=== PATIENT | female | born 1970 | race Hispanic/Latino ===

== ENCOUNTER 2018-07-12 19:26 | Inpatient (IN) | payer MEDICARE, OTHER ==
[2018-07-12] MEDS ORDERED: NACL 0.9% 1000 ML 1,000 ML ONE (19:56)
[2018-07-12] MEDS ORDERED: KEPPRA 1,000 MG/NS 0.75% 100ML 1,000 MG/100 ML BAG IV ONE (20:56)
[2018-07-12 21:06] LABS: BUN/Creatinine Ratio 14; Blood Urea Nitrogen 10 mg/dL (7-17); Hemolysis Index 8
[2018-07-12 21:09] LABS: Basophils # (Auto) 0.1 K/mm3 (0.0-0.1); Basophils % (Auto) 0.5 % (0.0-1.8); Eosinophils % (Auto) 0.2 % (0.0-4.3); Hemoglobin 14.5 gm/dl (10.1-14.3); Lymphocytes # (Auto) 1.7 K/mm3 (1.2-5.4); Lymphocytes % (Auto) 13.2 % (13.4-35.0); Mean Corpuscular HGB Conc 34 % (30-34); Mean Corpuscular Hemoglobin 34 pg (28-32); Mean Corpuscular Volume 101 fl (79-97); Monocytes # (Auto) 0.7 K/mm3 (0.0-0.8); Monocytes % (Auto) 5.5 % (0.0-7.3); Platelet Count 212 K/mm3 (140-440); Red Blood Count 4.26 M/mm3 (3.65-5.03); Red Cell Distribution Width 15.3 % (13.2-15.2)
--- NOTE | 2018-07-12 21:47 | Cat Scan Report ---
FINAL REPORT PROCEDURE: CT HEAD/BRAIN WO CON TECHNIQUE: Computerized tomography of the head was performed without contrast material. HISTORY: new onset seizure COMPARISON: No prior studies are available for comparison. FINDINGS: This study is limited due to motion artifacts. A CSF density lesion is noted involving the posterior interventricular septum causing mass effect on the posterior 3rd ventricle and the upper portion of mid brain. Pineal gland appears to be displaced slightly to the left. Mild degree bilateral periventricular nonspecific white matter hypodensity is noted. There is no significant abnormality involving the posterior fossa structures. Visualized bilateral paranasal sinuses and mastoid air cells are clear. Bones are intact. IMPRESSION: A posterior interventricular CSF density cystic lesion most likely represents an arachnoid cyst. MRI pre and post contrast is recommended for further evaluation.
[2018-07-12 22:23] LABS: Bilirubin,Urine NEG (Negative); Blood,Urine SM (Negative); Color,Urine Yellow (Yellow); Mucus,Urine FEW /HPF; Urobilinogen,Urine < 2.0 mg/dL (<2.0)
[2018-07-12 22:31] LABS: Amphetamine Screen,Urine PRESUMPTIVE NEGATIVE; Benzodiazepines Screen,Urine PRESUMPTIVE NEGATIVE; Cannabinoid Screen,Urine PRESUMPTIVE NEGATIVE; Cocaine Screen,Urine PRESUMPTIVE NEGATIVE; Methadone Screen,Urine PRESUMPTIVE NEGATIVE; Opiate Screen,Urine PRESUMPTIVE NEGATIVE
--- NOTE | 2018-07-12 22:39 | Emergency Department Report ---
ED Seizure HPI - General Chief Complaint: Seizure Stated Complaint: SEIZURE Time Seen by Provider: 07/12/18 20:28 Source: EMS Mode of arrival: Stretcher Limitations: No Limitations - History of Present Illness Initial Comments: PT is currently at [facility] for psychosis on a voluntary basis. Today she had two generalized seizures. Never has had a seizure before. Patient did not return to baseline between the 2 seizures. She was postictal afterwards. When EMS arrived, her seizures have stopped. They gave her 2 mg IV Ativan and brought her to the ER for evaluation. Patient has been a [facility] for the past 5 days. She has no memory of today's events. - Related Data Allergies Allergy/AdvReac Type Severity Reaction Status Date / Time No Known Allergies Allergy Verified 07/13/18 05:03 ED Review of Systems ROS: Stated complaint: SEIZURE Other details as noted in HPI Comment: All other systems reviewed and negative Musculoskeletal: arthralgia, myalgia ED Past Medical Hx - Past Medical History Previous Medical History?: Yes Hx Seizures: Yes Additional medical history: etoh abuse - Surgical History Additional Surgical History: unknown - Social History Smoking Status: Smoker, Current Status Unknown ED Physical Exam - General Limitations: No Limitations General appearance: alert, in no apparent distress - Head Head exam: Present: atraumatic, normocephalic - Eye Eye exam: Present: normal appearance - ENT ENT exam: Present: mucous membranes moist - Neck Neck exam: Present: normal inspection - Respiratory Respiratory exam: Present: normal lung sounds bilaterally. Absent: respiratory distress - Cardiovascular Cardiovascular Exam: Present: regular rate, normal rhythm. Absent: systolic murmur, diastolic murmur, rubs, gallop - GI/Abdominal GI/Abdominal exam: Present: soft, normal bowel sounds. Absent: distended, tenderness, guarding, rebound - Extremities Exam Extremities exam: Present: normal inspection - Back Exam Back exam: Present: normal inspection - Neurological Exam Neurological exam: Present: alert, oriented X3 - Psychiatric Psychiatric exam: Present: normal affect, normal mood - Skin Skin exam: Present: warm, dry, intact, normal color. Absent: rash ED Course Vital Signs 07/12/18 07/12/18 07/12/18 19:32 19:45 20:00 Temperature Pulse Rate 82 86 84 Respiratory 21 19 20 Rate Blood Pressure 115/69 104/63 O2 Sat by Pulse 94 93 Oximetry 07/12/18 07/12/18 20:15 20:19 Temperature 98.6 F Pulse Rate 81 99 H Respiratory 18 17 Rate Blood Pressure 104/63 113/71 O2 Sat by Pulse 92 99 Oximetry - Reevaluation(s) Reevaluation #1: MRI head shows evidence of a benign arachnoid cyst. He has not had any seizure activity while in the ER. She will be admitted for status epilepticus. 07/13/18 05:04 ED Medical Decision Making - Lab Data Result diagrams: 07/12/18 20:59 07/12/18 20:32 - Medical Decision Making 48-year-old female with a past medical history psychosis that presents to the ER with seizure-like activity, now resolved. Vital signs are stable. Patient is well-appearing. Lab work and EKG are unremarkable. CT head shows signs of a cystic lesion, which the radiologist thinks is a arachnoid cyst. He is recommending an MRI for further workup. Given the patient has had new onset seizures, I have ordered the MRI. She has been given 1 g of Keppra in the ER for treatment of status epilepticus episode. She has no history of drinking. She was score is 0. Do not think that this is related to alcohol detox. She is on a voluntary 1013 at [facility]. I do not see a need to 1013 her right now. - Differential Diagnosis epilepsy, electrolyte abnormalities, malignancy, substance abuse withdrawal Critical care attestation.: If time is entered above; I have spent that time in minutes in the direct care of this critically ill patient, excluding procedure time. ED Disposition Clinical Impression: Status epilepticus, Arachnoid cyst Disposition: -09 OP ADMIT IP TO THIS HOSP Is pt being admited?: Yes Does the pt Need Aspirin: No Condition: Stable Referrals: PRIMARY CARE, [Primary Care Provider] - 3-5 Days
[2018-07-13] MEDS ORDERED: TORADOL IV ONE (00:20)
--- NOTE | 2018-07-13 03:45 | Magnetic Resonance Report ---
FINAL REPORT EXAM: MR BRAIN WO/W CON HISTORY: new onset sz, new cystic lesion on CT head TECHNIQUE: Routine multiplanar fast spin echo sequences were obtained of the brain initially without and subsequently following the intravenous injection of contrast. Correlation with the CT scan of the brain of 07/12/2018 was obtained. FINDINGS: There are multiple sequences compromised by motion artifact. In the quadrigeminal cistern behind the 3rd ventricle is a thin-walled arachnoid cyst measuring 15.9 mm x 19 mm x 23 mm with mild mass effect on the quadrigeminal plate. There is no evidence of hydrocephalus. There is increased signal in the periventricular white matter bilaterally compatible with chronic microvascular disease changes. There is no evidence of restricted diffusion. There are no signal changes that would suggest a recent stroke, hemorrhage, or abnormal enhancement. The orbital and sinus structures are unremarkable. Parasagittal images otherwise reveal a normal-appearing corpus callosum, pituitary gland and craniocervical junction. The nasopharynx is unremarkable. IMPRESSION: 15.9 mm x 19 mm x 23 mm benign arachnoid cyst in the quadrigeminal cistern with slight mass effect on the quadrigeminal plate. No evidence of hydrocephalus or abnormal enhancement. No evidence of acute stroke, hemorrhage or enhancing lesion. Increased signal of the periventricular and deep white matter compatible with chronic microvascular disease changes.
[2018-07-13] MEDS ORDERED: ATIVAN IV PRN ×4 (04:55→15:53)
[2018-07-13] MEDS ORDERED: TYLENOL PO PRN (04:56)
[2018-07-13] MEDS ORDERED: ZOFRAN IV PRN (04:57)
[2018-07-13] MEDS ORDERED: NACL 0.9% 1000 ML 1,000 ML IV SCH (05:00)
--- NOTE | 2018-07-13 08:10 | History and Physical Report ---
CHIEF COMPLAINT: Seizure attack. HISTORY OF PRESENTING ILLNESS: The patient is a 48-year-old female brought from [facility] after she started having generalized tonic-clonic seizure. The patient had [id number] seizure attack and was noted noted to get back to her baseline after 2 seizure attacks. There was no history of fever prior to the seizure attack and also no history of trauma prior to the seizure attack. There was no history of nausea or vomiting during the seizure attack or injury or biting of tongue. The patient was brought into the Emergency Room. PAST MEDICAL HISTORY: Pertinent for seizure disorder, alcohol abuse. PAST SURGICAL HISTORY: Noncontributory. SOCIAL HISTORY: The patient is currently at [facility]. The patient used to smoke cigarettes, drinks alcohol, does not use illicit drugs. MEDICATIONS: The patient's home medications are not known at this time. ALLERGIES: There are no known drug allergies. REVIEW OF SYSTEMS: CONSTITUTIONAL: There is no fever, no chills, no diaphoresis. HEENT: There is no headache or sore throat. CARDIOVASCULAR SYSTEM: There is no chest pain or orthopnea. RESPIRATORY SYSTEM: There is no shortness of breath or cough. GASTROINTESTINAL SYSTEM: There is no nausea, no vomiting. No abdominal pain, diarrhea or constipation. NEUROLOGICAL SYSTEM: Seizure attack noted. Change in mental status noted. MUSCULOSKELETAL SYSTEM: There is no joint pain or swelling. DERMATOLOGICAL SYSTEM: There is no skin rash or itching. GENITOURINARY SYSTEM: There is no dysuria, hematuria or flank pain. Rest of system review is normal. PHYSICAL EXAMINATION: GENERAL: At the time of exam, the patient was found to be lethargic, but arousable, and not in acute distress. VITAL SIGNS: At the initial time of presentation shows a temperature of 98.6 degrees Fahrenheit and pulse of 99, respiration 17, blood pressure 113/71, O2 sat of 99% on room air. HEENT: Show pupils to be equal, round, reactive to light and accommodating. Extraocular muscles are intact. NECK: Neck is supple with no JVD or carotid bruit. CARDIOVASCULAR SYSTEM: Show normal first and second heart sounds with no gallops or murmur. RESPIRATORY SYSTEM: Show good air entry on both sides of the lungs with no abnormal breath sounds. GASTROINTESTINAL SYSTEM: Show abdomen to be full, soft, nontender with no organomegaly or rigidity. NEUROLOGIC: Neuro exam show no focal deficit. The patient was found to be lethargic, but arousable. MUSCULOSKELETAL SYSTEM: Show no joint swelling or tenderness. DERMATOLOGICAL SYSTEM: Show no skin rash. GENITOURINARY SYSTEM: Showing no costovertebral angle tenderness. PERTINENT LABORATORY AND IMAGING STUDIES: The patient has CT of the brain without contrast done that shows arachnoid cyst, and the patient has MRI that confirmed the cyst. Lab results; the patient's lab results show CBC with elevated white count of 13,000, high hemoglobin of 14.7 and a high hematocrit of 43 with elevated MCV of 101. CBC differential show high segmented neutrophil of 80.6%. The patient's chemistry was unremarkable. Urinalysis shows trace urine ketones, otherwise unremarkable. Urine drug screen was unremarkable. DIAGNOSES: 1. Seizure attack: 2. Arachnoid cyst on CT and MRI of the brain. PLAN: 1. The patient will be admitted to telemetry. 2. The patient will have Neurology consult with Dr. Emma Cortez. 3. The patient will have Nephrology consult with Dr. Rios as requested by the Emergency Room physician for evaluation of possible renal insufficiency. 4. The patient will be on IV Keppra 750 mg q. 12 hours. 5. The patient will be on IV Ativan 2 mg every 2 hours as needed for seizure attack. 6. The patient will be on IV Zofran 4 mg every 8 hours as needed for nausea and vomiting and will be on oxygen by nasal cannula at 2 liter per minute. 7. The patient will be on IV normal saline at 100 mL an hour and will be on heparin 5000 units subcutaneous q. 12 hours for DVT prophylaxis and also on Tylenol 650 mg by mouth every 4 hours for fever and headache. JOB# [id number] OCN/NTS MTDD
[2018-07-13] MEDS ORDERED: KEPPRA 750 MG in NACL 0.9% 100 ML IV SCH (10:00)
[2018-07-13] MEDS ORDERED: HEPARIN SUB-Q SCH (10:00)
[2018-07-13] MEDS ORDERED: ATIVAN IV ONE (11:15)
--- NOTE | 2018-07-13 12:35 | Consultation ---
History of Present Illness Consult date: 07/13/18 Requesting physician: STEFAN SCHOFIELD Reason for Consult: status epilepticus History of present illness: Note from ER provides the following information. PT is currently at [facility] for psychosis on a voluntary basis. Today she had two generalized seizures. Never has had a seizure before. Patient did not return to baseline between the 2 seizures. She was postictal afterwards. When EMS arrived, her seizures have stopped. They gave her 2 mg IV Ativan and brought her to the ER for evaluation. After admission the patient had several more seizures, not waking up inbetween. She has been loaded with Keppra and given multiple doses of Ativan Currently she is postictal, awake but not verbal. MRI scan reveals an odd cystic lesion at the quadrigeminal plate, near the 3rd ventricle. We have no history of meds or past medical history. Medications and Allergies Allergies Allergy/AdvReac Type Severity Reaction Status Date / Time No Known Allergies Allergy Verified 07/13/18 05:03 Active Meds: Active Medications Acetaminophen (Tylenol) 650 mg PO Q4H PRN PRN Reason: Fever >101 Heparin Sodium (Porcine) (Heparin) 5,000 unit SUB-Q Q12HR ZAY Levetiracetam 750 mg/ Sodium (Chloride) 107.5 mls @ 400 mls/hr IV Q12HR ZAY Last Admin: 07/13/18 10:54 Dose: 400 mls/hr Sodium Chloride (Nacl 0.9% 1000 Ml) 1,000 mls @ 100 mls/hr IV DIRECT ZAY Lorazepam (Ativan) 2 mg IV Q2H PRN PRN Reason: Seizures Last Admin: 07/13/18 10:30 Dose: 2 mg Ondansetron HCl (Zofran) 4 mg IV Q8H PRN PRN Reason: Nausea And Vomiting Review of Systems ROS unobtainable: due to mental status Physical Examination - Vital Signs Vital Signs: Vital Signs Pulse Resp 82 21 07/12/18 19:32 07/12/18 19:32 - Physical Exam Narrative exam: Neurological exam - no verbalization. Moving in bed - not responding to commands. Picking at bed clothes, etc. No active seizures. federal aid coordinator - moves eyes in all plains. hearing intact Motor -moves all 4 extremities well. Reflexes - trace throughout Sensory - grossly intact. Results - Laboratory Findings CBC and BMP: 07/12/18 20:59 07/12/18 20:32 Abnormal Lab Findings: Abnormal Labs 07/12/18 20:59 WBC 13.0 H Hgb 14.5 H Hct 43.0 H MCV 101 H MCH 34 H RDW 15.3 H Lymph % (Auto) 13.2 L Seg Neutrophils % 80.6 H Seg Neutrophils # 10.5 H Assessment and Plan 48 year old female admitted from [facility] with first time seizures, status on presentation. MRI scan shows cystic lesion near quadrigeminal plate. EEG at present with multiple diffuse sharp waves, generalized, sl0ow background. Recommend - Load with Dilantin 500 mg. now and another 500 in 8 hours. Continue Keppra at 1000 mg BID. May increase to 1500 Q 12 over the weekend.
--- NOTE | 2018-07-13 15:44 | Progress Note ---
Assessment and Plan Assessment and plan: Patient is a 48 yo woman from [facility] who presented to [facility] after multiple seizure episodes. Patient is giving no history. She is confused. When I reviewed the records from [facility]; there is a signed 1013 on 2017. So, she was not on a involutary stay as stated in other physician's documentation. Now, the 1013 is very difficult to read and it most likely has . I have spoken with Virgilio from Psych departement and that 1013 is not valid and patient is confused to get an history of why she was on a 1013. This morning, CODE MET was called due to intractable seizures after multiple doses of iv ativan and iv keppra drip running. I spoke with the neurologist, Dr. Cortez and Housing Quality Standard Inspector Dr. Farmer who was at bedside. I sent to ICU for possible intubation due to Status Epilepticus -Status Epilepticus: treat with iv keppra, iv ativan and iv dilantin, EEG pending -Acute Encephalopathy related to the above -Arachnoid cyst on MRI: consulted Dr. Cortez -Suspected MDD: consulted psych -?ETOH Withdrawal per [facility]'s record: treat with IV ativan prn History Interval history: Patient was seen and examined. Follow-up on current diagnosis of sz and ams. Eventful morning with CODE MET. Imaging, nursing note, chart, labs and old chart reviewed. Hospitalist Physical - Physical exam Narrative exam: GEN: WDWN, NAD, Awake, Alert, Orientated x 1 HEENT: NCAT, EOMI, Pupils pinpt but reactive, OP Clear NECK: supple, no adenopathy, no thyromegaly, no JVD CVS/HEART: RRR, normal S1S2, pulses present bilaterally CHEST/LUNGS: CTA B, Symmetrical chest expansion, good air entry bilaterally GI/Abdomen: soft, NTND, good bowel sounds, no guarding or rebound /Bladder: no suprapubic tenderness, no CVA or paraspinal tenderness EXT/Skin: no c/c/e, no obvious rash MSK: FROM x 4 Neuro: CN 2-12 grossly intact, doesn't follow commands Psych: confused - Constitutional Vitals: Temp Pulse Resp BP Pulse Ox 98.1 F 76 16 125/69 99 07/13/18 07:46 07/13/18 10:00 07/13/18 14:56 07/13/18 07:46 07/13/18 14:56 Results - Labs CBC & Chem 7: 07/12/18 20:59 07/12/18 20:32 Labs: Laboratory Last Values WBC 13.0 K/mm3 (4.5-11.0) H 07/12/18 20:59 RBC 4.26 M/mm3 (3.65-5.03) 07/12/18 20:59 Hgb 14.5 gm/dl (10.1-14.3) H 07/12/18 20:59 Hct 43.0 % (30.3-42.9) H 07/12/18 20:59 MCV 101 fl (79-97) H 07/12/18 20:59 MCH 34 pg (28-32) H 07/12/18 20:59 MCHC 34 % (30-34) 07/12/18 20:59 RDW 15.3 % (13.2-15.2) H 07/12/18 20:59 Plt Count 212 K/mm3 (140-440) 07/12/18 20:59 Lymph % (Auto) 13.2 % (13.4-35.0) L 07/12/18 20:59 [place] % (Auto) 5.5 % (0.0-7.3) 07/12/18 20:59 Eos % (Auto) 0.2 % (0.0-4.3) 07/12/18 20:59 Baso % (Auto) 0.5 % (0.0-1.8) 07/12/18 20:59 Lymph # 1.7 K/mm3 (1.2-5.4) 07/12/18 20:59 [place] # 0.7 K/mm3 (0.0-0.8) 07/12/18 20:59 Eos # 0.0 K/mm3 (0.0-0.4) 07/12/18 20:59 Baso # 0.1 K/mm3 (0.0-0.1) 07/12/18 20:59 Seg Neutrophils % 80.6 % (40.0-70.0) H 07/12/18 20:59 Seg Neutrophils # 10.5 K/mm3 (1.8-7.7) H 07/12/18 20:59 Sodium 138 mmol/L (137-145) 07/12/18 20:32 Potassium 4.2 mmol/L (3.6-5.0) 07/12/18 20:32 Chloride 98.2 mmol/L (98-107) 07/12/18 20:32 Carbon Dioxide 23 mmol/L (22-30) 07/12/18 20:32 Anion Gap 21 mmol/L 07/12/18 20:32 BUN 10 mg/dL (7-17) 07/12/18 20:32 Creatinine 0.7 mg/dL (0.7-1.2) 07/12/18 20:32 Estimated GFR > 60 ml/min 07/12/18 20:32 BUN/Creatinine Ratio 14 % 07/12/18 20:32 Glucose 79 mg/dL (65-100) 07/12/18 20:32 Calcium 10.0 mg/dL (8.4-10.2) 07/12/18 20:32 Urine Color Yellow (Yellow) 07/12/18 22:14 Urine Turbidity Cloudy (Clear) 07/12/18 22:14 Urine pH 6.0 (5.0-7.0) 07/12/18 22:14 Ur Specific [place] 1.014 (1.003-1.030) 07/12/18 22:14 Urine Protein 30 mg/dl mg/dL (Negative) 07/12/18 22:14 Urine Glucose (UA) Neg mg/dL (Negative) 07/12/18 22:14 Urine Ketones Tr mg/dL (Negative) 07/12/18 22:14 Urine Blood Sm (Negative) 07/12/18 22:14 Urine Nitrite Neg (Negative) 07/12/18 22:14 Urine Bilirubin Neg (Negative) 07/12/18 22:14 Urine Urobilinogen < 2.0 mg/dL (<2.0) 07/12/18 22:14 Ur Leukocyte Esterase Neg (Negative) 07/12/18 22:14 Urine WBC (Auto) 2.0 /HPF (0.0-6.0) 07/12/18 22:14 Urine RBC (Auto) 3.0 /HPF (0.0-6.0) 07/12/18 22:14 U Epithel Cells (Auto) 1.0 /HPF (0-13.0) 08/16/18 22:14 Urine Mucus Few /HPF 07/12/18 22:14 Urine Opiates Screen Presumptive negative 07/12/18 22:14 Urine Methadone Screen Presumptive negative 07/12/18 22:14 Ur Barbiturates Screen Presumptive negative 07/12/18 22:14 Ur Phencyclidine Scrn Presumptive negative 07/12/18 22:14 Ur Amphetamines Screen Presumptive negative 07/12/18 22:14 U Benzodiazepines Scrn Presumptive negative 07/12/18 22:14 Urine Cocaine Screen Presumptive negative 07/12/18 22:14 U Marijuana (THC) Screen Presumptive negative 07/12/18 22:14 Drugs of Abuse Note Disclamer 07/12/18 22:14 Plasma/Serum Alcohol < 0.01 % (0-0.07) 07/12/18 20:59
[2018-07-13] MEDS ORDERED: HALDOL IV PRN (15:53)
[2018-07-13] MEDS: VITAMIN B-1 PO SCH (17:02)
[2018-07-13] MEDS: FOLVITE PO SCH (17:02)
[2018-07-13] MEDS ORDERED: APRESOLINE IV PRN (17:32)
[2018-07-13 18:36] LABS: Free T4 (Free Thyroxine) 1.49 ng/dL (0.76-1.46)
[2018-07-13] MEDS: KEPPRA 1,000 MG in NACL 0.9% 100 ML IV SCH (21:45)
[2018-07-14 05:05] LABS: Hematocrit 38.8 % (30.3-42.9); Hemoglobin 13.1 gm/dl (10.1-14.3); Mean Corpuscular HGB Conc 34 % (30-34); Mean Corpuscular Hemoglobin 35 pg (28-32); Mean Corpuscular Volume 102 fl (79-97); Platelet Count 175 K/mm3 (140-440); Red Blood Count 3.81 M/mm3 (3.65-5.03); Red Cell Distribution Width 15.3 % (13.2-15.2)
[2018-07-14 06:05] LABS: BUN/Creatinine Ratio 27; Blood Urea Nitrogen 16 mg/dL (7-17); Calcium 9.1 mg/dL (8.4-10.2); Hemolysis Index 6
[2018-07-14] MEDS: FOLVITE PO SCH (10:10)
[2018-07-14] MEDS: KEPPRA 1,000 MG in NACL 0.9% 100 ML IV SCH ×2 (10:12→22:35)
[2018-07-14] MEDS: VITAMIN B-1 PO SCH (10:12)
[2018-07-14] MEDS ORDERED: K-DUR PO ONE (10:26)
--- NOTE | 2018-07-14 10:28 | Progress Note ---
Assessment and Plan Assessment and plan: Patient is a 48 yo woman from [facility] who presented to [facility] after multiple seizure episodes. There is a signed 1013 on 07/06/2018 from [place] [facility] in the chart but I have spoken with Virgilio from Psych department and that 1013 is not valid. She developed Status Epilepticus 07/13/18 and was sent to ICU. She did not require intubation and has done well. She was transferred out of ICU on 07/14/18. -Status Epilepticus: treat with iv keppra, iv ativan, dilantin, EEG report reviewed -Acute Encephalopathy related to the above -Arachnoid cyst on MRI: incidental -Suspected MDD: consulted psych -?ETOH Withdrawal per [facility]'s record: treat with IV ativan prn History Interval history: Patient was seen and examined. Follow-up on current diagnosis of sz and ams. Sedated with iv ativan but easily arousable. Imaging, nursing note, chart, labs and old chart reviewed. Hospitalist Physical - Physical exam Narrative exam: GEN: WDWN, NAD, sleepy but easily arousable HEENT: NCAT, EOMI, Pupils pinpt but reactive, OP Clear NECK: supple, no adenopathy, no thyromegaly, no JVD CVS/HEART: RRR, normal S1S2, pulses present bilaterally CHEST/LUNGS: CTA B, Symmetrical chest expansion, good air entry bilaterally GI/Abdomen: soft, NTND, good bowel sounds, no guarding or rebound /Bladder: no suprapubic tenderness, no CVA or paraspinal tenderness EXT/Skin: no c/c/e, no obvious rash MSK: FROM x 4 Neuro: CN 2-12 grossly intact, no new focal deficits Psych: calm - Constitutional Vitals: Temp Pulse Resp BP Pulse Ox 97.9 F 78 22 150/85 99 07/14/18 08:00 07/14/18 09:30 07/14/18 09:30 07/14/18 09:30 07/14/18 09:30 Results - Labs CBC & Chem 7: 07/14/18 04:27 07/14/18 04:27 Labs: Laboratory Last Values WBC 12.2 K/mm3 (4.5-11.0) H 07/14/18 04:27 RBC 3.81 M/mm3 (3.65-5.03) 07/14/18 04:27 Hgb 13.1 gm/dl (10.1-14.3) 07/14/18 04:27 Hct 38.8 % (30.3-42.9) 07/14/18 04:27 MCV 102 fl (79-97) H 07/14/18 04:27 MCH 35 pg (28-32) H 07/14/18 04:27 MCHC 34 % (30-34) 07/14/18 04:27 RDW 15.3 % (13.2-15.2) H 07/14/18 04:27 Plt Count 175 K/mm3 (140-440) 07/14/18 04:27 Lymph % (Auto) 13.2 % (13.4-35.0) L 07/12/18 20:59 [place] % (Auto) 5.5 % (0.0-7.3) 07/12/18 20:59 Eos % (Auto) 0.2 % (0.0-4.3) 07/12/18 20:59 Baso % (Auto) 0.5 % (0.0-1.8) 07/12/18 20:59 Lymph # 1.7 K/mm3 (1.2-5.4) 07/12/18 20:59 [place] # 0.7 K/mm3 (0.0-0.8) 07/12/18 20:59 Eos # 0.0 K/mm3 (0.0-0.4) 07/12/18 20:59 Baso # 0.1 K/mm3 (0.0-0.1) 07/12/18 20:59 Seg Neutrophils % 80.6 % (40.0-70.0) H 07/12/18 20:59 Seg Neutrophils # 10.5 K/mm3 (1.8-7.7) H 07/12/18 20:59 Sodium 141 mmol/L (137-145) 07/14/18 04:27 Potassium 3.2 mmol/L (3.6-5.0) L D 07/14/18 04:27 Chloride 101.4 mmol/L (98-107) 07/14/18 04:27 Carbon Dioxide 25 mmol/L (22-30) 07/14/18 04:27 Anion Gap 18 mmol/L 07/14/18 04:27 BUN 16 mg/dL (7-17) 07/14/18 04:27 Creatinine 0.6 mg/dL (0.7-1.2) L 07/14/18 04:27 Estimated GFR > 60 ml/min 07/14/18 04:27 BUN/Creatinine Ratio 27 % 07/14/18 04:27 Glucose 96 mg/dL (65-100) 07/14/18 04:27 Calcium 9.1 mg/dL (8.4-10.2) 07/14/18 04:27 TSH 0.718 mlU/mL (0.270-4.200) 07/13/18 16:42 Free T4 1.49 ng/dL (0.76-1.46) H 07/13/18 16:42 Urine Color Yellow (Yellow) 07/12/18 22:14 Urine Turbidity Cloudy (Clear) 07/12/18 22:14 Urine pH 6.0 (5.0-7.0) 07/12/18 22:14 Ur Specific [place] 1.014 (1.003-1.030) 07/12/18 22:14 Urine Protein 30 mg/dl mg/dL (Negative) 07/12/18 22:14 Urine Glucose (UA) Neg mg/dL (Negative) 07/12/18 22:14 Urine Ketones Tr mg/dL (Negative) 07/12/18 22:14 Urine Blood Sm (Negative) 07/12/18 22:14 Urine Nitrite Neg (Negative) 07/12/18 22:14 Urine Bilirubin Neg (Negative) 07/12/18 22:14 Urine Urobilinogen < 2.0 mg/dL (<2.0) 07/12/18 22:14 Ur Leukocyte Esterase Neg (Negative) 07/12/18 22:14 Urine WBC (Auto) 2.0 /HPF (0.0-6.0) 07/12/18 22:14 Urine RBC (Auto) 3.0 /HPF (0.0-6.0) 07/12/18 22:14 U Epithel Cells (Auto) 1.0 /HPF (0-13.0) 07/12/18 22:14 Urine Mucus Few /HPF 07/12/18 22:14 Urine Opiates Screen Presumptive negative 07/12/18 22:14 Urine Methadone Screen Presumptive negative 07/12/18 22:14 Ur Barbiturates Screen Presumptive negative 07/12/18 22:14 Ur Phencyclidine Scrn Presumptive negative 07/12/18 22:14 Ur Amphetamines Screen Presumptive negative 07/12/18 22:14 U Benzodiazepines Scrn Presumptive negative 07/12/18 22:14 Urine Cocaine Screen Presumptive negative 07/12/18 22:14 U Marijuana (THC) Screen Presumptive negative 07/12/18 22:14 Drugs of Abuse Note Disclamer 07/12/18 22:14 Plasma/Serum Alcohol < 0.01 % (0-0.07) 07/12/18 20:59
[2018-07-14] MEDS: DILANTIN PO SCH ×2 (18:16→22:18)
[2018-07-15] MEDS: DILANTIN PO SCH ×3 (06:03→23:10)
[2018-07-15 06:06] LABS: Hematocrit 40.3 % (30.3-42.9); Hemoglobin 13.6 gm/dl (10.1-14.3); Mean Corpuscular HGB Conc 34 % (30-34); Mean Corpuscular Hemoglobin 34 pg (28-32); Mean Corpuscular Volume 101 fl (79-97); Platelet Count 197 K/mm3 (140-440); Red Cell Distribution Width 15.4 % (13.2-15.2)
[2018-07-15 06:08] LABS: BUN/Creatinine Ratio 46; Blood Urea Nitrogen 23 mg/dL (7-17); Calcium 9.4 mg/dL (8.4-10.2); Hemolysis Index 14
[2018-07-15] MEDS: VITAMIN B-1 PO SCH (09:13)
[2018-07-15] MEDS: FOLVITE PO SCH (09:13)
[2018-07-15] MEDS: KEPPRA 1,000 MG in NACL 0.9% 100 ML IV SCH (10:15)
--- NOTE | 2018-07-15 11:27 | Progress Note ---
Assessment and Plan Assessment and plan: Patient is a 48 yo woman from [facility] facility who presented to [facility] after multiple seizure episodes. There is a signed 1013 on 07/06/2018 from [place] in the chart but I have spoken with Virgilio from Psych department and that 1013 is not valid. She developed Status Epilepticus 07/13/18 and was sent to ICU. She did not require intubation and has done well. She was transferred out of ICU on 07/14/18. -Status Epilepticus: treat with iv keppra, iv ativan, dilantin, EEG report reviewed -Acute Encephalopathy related to the above -Arachnoid cyst on MRI: incidental -Suspected MDD: consulted psych -?ETOH Withdrawal per [place]'s record: treat with IV ativan prn Jaqueline Mead at bedside. Not known to be alcoholic but was on Suboxone x 5 years. Initially, she went to [facility] ED because of overdose, mixed fentanyl (street) with suboxone and she became confused. She was admitted there for about a week. Then she discharge to [facility] last Monday for seizures. She has CHF, HTN not DM. She has 3 children, with 2 sons and 1 daughter. I spoke with sonKody over the phone also Patient actively had another brief seizure during my visit, will transfer to [facility] for closer monitoring, give IV Ativan. CCT 31 minutes History Interval history: Patient was seen and examined. Follow-up on current diagnosis of sz and ams. Sleepy. Imaging, nursing note, chart, labs and old chart reviewed. Jaqueline Mead at bedside. Not known to be alcoholic but was on Suboxone x 5 years. Initially she went to [facility] ED because of overdose, mixed fentanyl (street) with suboxone and she became confused. She was admitted there for about a week. Then she discharge to [facility] last Monday for seizures. She has CHF, htn, not DM. She has 3 children, with 2 sons and 1 daughter Hospitalist Physical - Physical exam Narrative exam: GEN: WDWN, NAD, sleepy but easily arousable HEENT: NCAT, EOMI, Pupils pinpt but reactive, OP Clear NECK: supple, no adenopathy, no thyromegaly, no JVD CVS/HEART: RRR, normal S1S2, pulses present bilaterally CHEST/LUNGS: CTA B, Symmetrical chest expansion, good air entry bilaterally GI/Abdomen: soft, NTND, good bowel sounds, no guarding or rebound /Bladder: no suprapubic tenderness, no CVA or paraspinal tenderness EXT/Skin: no c/c/e, no obvious rash MSK: FROM x 4 Neuro: CN 2-12 grossly intact, no new focal deficits Psych: calm - Constitutional Vitals: Temp Pulse Resp BP Pulse Ox 98.4 F 83 18 147/86 99 07/15/18 06:08 07/15/18 06:08 07/15/18 06:08 07/15/18 06:08 07/15/18 08:28 Results - Labs CBC & Chem 7: 07/15/18 05:07 07/15/18 05:07 Labs: Laboratory Last Values WBC 13.6 K/mm3 (4.5-11.0) H 07/15/18 05:07 RBC 4.00 M/mm3 (3.65-5.03) 07/15/18 05:07 Hgb 13.6 gm/dl (10.1-14.3) 07/15/18 05:07 Hct 40.3 % (30.3-42.9) 07/15/18 05:07 MCV 101 fl (79-97) H 07/15/18 05:07 MCH 34 pg (28-32) H 07/15/18 05:07 MCHC 34 % (30-34) 07/15/18 05:07 RDW 15.4 % (13.2-15.2) H 07/15/18 05:07 Plt Count 197 K/mm3 (140-440) 07/15/18 05:07 Lymph % (Auto) 13.2 % (13.4-35.0) L 07/12/18 20:59 [place] % (Auto) 5.5 % (0.0-7.3) 07/12/18 20:59 Eos % (Auto) 0.2 % (0.0-4.3) 07/12/18 20:59 Baso % (Auto) 0.5 % (0.0-1.8) 07/12/18 20:59 Lymph # 1.7 K/mm3 (1.2-5.4) 07/12/18 20:59 [place] # 0.7 K/mm3 (0.0-0.8) 07/12/18 20:59 Eos # 0.0 K/mm3 (0.0-0.4) 07/12/18 20:59 Baso # 0.1 K/mm3 (0.0-0.1) 07/12/18 20:59 Seg Neutrophils % 80.6 % (40.0-70.0) H 07/12/18 20:59 Seg Neutrophils # 10.5 K/mm3 (1.8-7.7) H 07/12/18 20:59 Sodium 141 mmol/L (137-145) 07/15/18 05:07 Potassium 3.2 mmol/L (3.6-5.0) L 07/15/18 05:07 Chloride 98.4 mmol/L (98-107) 07/15/18 05:07 Carbon Dioxide 21 mmol/L (22-30) L 07/15/18 05:07 Anion Gap 25 mmol/L 07/15/18 05:07 BUN 23 mg/dL (7-17) H 07/15/18 05:07 Creatinine 0.5 mg/dL (0.7-1.2) L 07/15/18 05:07 Estimated GFR > 60 ml/min 07/15/18 05:07 BUN/Creatinine Ratio 46 % 07/15/18 05:07 Glucose 108 mg/dL (65-100) H 07/15/18 05:07 Calcium 9.4 mg/dL (8.4-10.2) 07/15/18 05:07 Magnesium 2.10 mg/dL (1.7-2.3) 07/15/18 05:07 TSH 0.718 mlU/mL (0.270-4.200) 07/13/18 16:42 Free T4 1.49 ng/dL (0.76-1.46) H 07/13/18 16:42 Urine Color Yellow (Yellow) 07/12/18 22:14 Urine Turbidity Cloudy (Clear) 07/12/18 22:14 Urine pH 6.0 (5.0-7.0) 07/12/18 22:14 Ur Specific [place] 1.014 (1.003-1.030) 07/12/18 22:14 Urine Protein 30 mg/dl mg/dL (Negative) 07/12/18 22:14 Urine Glucose (UA) Neg mg/dL (Negative) 07/12/18 22:14 Urine Ketones Tr mg/dL (Negative) 07/12/18 22:14 Urine Blood Sm (Negative) 07/12/18 22:14 Urine Nitrite Neg (Negative) 07/12/18 22:14 Urine Bilirubin Neg (Negative) 07/12/18 22:14 Urine Urobilinogen < 2.0 mg/dL (<2.0) 07/12/18 22:14 Ur Leukocyte Esterase Neg (Negative) 07/12/18 22:14 Urine WBC (Auto) 2.0 /HPF (0.0-6.0) 07/12/18 22:14 Urine RBC (Auto) 3.0 /HPF (0.0-6.0) 07/12/18 22:14 U Epithel Cells (Auto) 1.0 /HPF (0-13.0) 07/12/18 22:14 Urine Mucus Few /HPF 07/12/18 22:14 Urine Opiates Screen Presumptive negative 07/12/18 22:14 Urine Methadone Screen Presumptive negative 07/12/18 22:14 Ur Barbiturates Screen Presumptive negative 07/12/18 22:14 Ur Phencyclidine Scrn Presumptive negative 07/12/18 22:14 Ur Amphetamines Screen Presumptive negative 07/12/18 22:14 U Benzodiazepines Scrn Presumptive negative 07/12/18 22:14 Urine Cocaine Screen Presumptive negative 07/12/18 22:14 U Marijuana (THC) Screen Presumptive negative 07/12/18 22:14 Drugs of Abuse Note Disclamer 07/12/18 22:14 Plasma/Serum Alcohol < 0.01 % (0-0.07) 07/12/18 20:59
[2018-07-15] MEDS ORDERED: K-DUR PO ONE (12:00)
[2018-07-15] MEDS: KEPPRA 1,500 MG in NACL 0.9% 100 ML IV SCH (23:09)
[2018-07-16 06:33] LABS: Hematocrit 41.9 % (30.3-42.9); Mean Corpuscular HGB Conc 33 % (30-34); Mean Corpuscular Hemoglobin 34 pg (28-32); Mean Corpuscular Volume 102 fl (79-97); Platelet Count 189 K/mm3 (140-440); Red Cell Distribution Width 14.9 % (13.2-15.2)
[2018-07-16] MEDS: DILANTIN PO SCH ×3 (06:49→23:04)
[2018-07-16 07:38] LABS: BUN/Creatinine Ratio 42; Blood Urea Nitrogen 21 mg/dL (7-17); Calcium 9.3 mg/dL (8.4-10.2); Hemolysis Index 5
--- NOTE | 2018-07-16 07:42 | Progress Note ---
Assessment and Plan Assessment and plan: Patient is a 48 yo woman from [facility] facility who presented to [facility] after multiple seizure episodes. There is a signed 1013 on 07/06/2018 from [place] in the chart but I have spoken with Virgilio from Psych department and that 1013 is not valid. She developed Status Epilepticus 07/13/18 and was sent to ICU. She did not require intubation and has done well. She was transferred out of ICU on 07/14/18. -Status Epilepticus: treat with iv keppra, iv ativan, dilantin, EEG report reviewed -Acute Encephalopathy related to the above -Arachnoid cyst on MRI: incidental -Hypokalemia: replace and recheck in am -Suspected MDD: consulted psych -?ETOH Withdrawal per [place]'s record: treat with IV ativan prn D/W Daughter Alyce. Pt NOT known to be alcoholic but was on Suboxone x 5 years. Initially, she went to [facility] ED because of overdose, mixed fentanyl (street) with suboxone and she became confused. She was admitted there for about a week. Then she discharge to [facility] facility last Monday for seizures. She has CHF, HTN not DM. She has 3 children, with 2 sons and 1 daughter. I spoke with sonKody over the phone also Patient continues to have breakthrough seizures, re-consulted Neurology this morning. Patient is sitting and talking, she is asking for food, over and over again, ?Echolalia Also, low grade temp, will get blood cultures and consulted ID CCT 31 minutes History Interval history: Patient was seen and examined. Follow-up on current diagnosis of sz and ams. Patient had another brief breakthru seizure. Hospitalist Physical - Physical exam Narrative exam: GEN: WDWN, NAD, sleepy but easily arousable HEENT: NCAT, EOMI, Pupils pinpt but reactive, OP Clear NECK: supple, no adenopathy, no thyromegaly, no JVD CVS/HEART: RRR, normal S1S2, pulses present bilaterally CHEST/LUNGS: CTA B, Symmetrical chest expansion, good air entry bilaterally GI/Abdomen: soft, NTND, good bowel sounds, no guarding or rebound /Bladder: no suprapubic tenderness, no CVA or paraspinal tenderness EXT/Skin: no c/c/e, no obvious rash MSK: FROM x 4 Neuro: CN 2-12 grossly intact, no new focal deficits Psych: calm - Constitutional Vitals: Temp Pulse Resp BP Pulse Ox 99.1 F 86 17 141/69 96 07/16/18 04:00 07/16/18 04:24 07/16/18 04:00 07/16/18 04:00 07/16/18 04:00 Results - Labs CBC & Chem 7: 07/16/18 05:56 07/16/18 05:56 Labs: Laboratory Last Values WBC 10.3 K/mm3 (4.5-11.0) 07/16/18 05:56 RBC 4.10 M/mm3 (3.65-5.03) 07/16/18 05:56 Hgb 14.0 gm/dl (10.1-14.3) 07/16/18 05:56 Hct 41.9 % (30.3-42.9) 07/16/18 05:56 MCV 102 fl (79-97) H 07/16/18 05:56 MCH 34 pg (28-32) H 07/16/18 05:56 MCHC 33 % (30-34) 07/16/18 05:56 RDW 14.9 % (13.2-15.2) 07/16/18 05:56 Plt Count 189 K/mm3 (140-440) 07/16/18 05:56 Lymph % (Auto) 13.2 % (13.4-35.0) L 07/12/18 20:59 [place] % (Auto) 5.5 % (0.0-7.3) 07/12/18 20:59 Eos % (Auto) 0.2 % (0.0-4.3) 07/12/18 20:59 Baso % (Auto) 0.5 % (0.0-1.8) 07/12/18 20:59 Lymph # 1.7 K/mm3 (1.2-5.4) 07/12/18 20:59 [place] # 0.7 K/mm3 (0.0-0.8) 07/12/18 20:59 Eos # 0.0 K/mm3 (0.0-0.4) 07/12/18 20:59 Baso # 0.1 K/mm3 (0.0-0.1) 07/12/18 20:59 Seg Neutrophils % 80.6 % (40.0-70.0) H 07/12/18 20:59 Seg Neutrophils # 10.5 K/mm3 (1.8-7.7) H 07/12/18 20:59 Sodium 144 mmol/L (137-145) 07/16/18 05:56 Potassium 3.4 mmol/L (3.6-5.0) L 07/16/18 05:56 Chloride 104.0 mmol/L (98-107) 07/16/18 05:56 Carbon Dioxide 20 mmol/L (22-30) L 07/16/18 05:56 Anion Gap 23 mmol/L 07/16/18 05:56 BUN 21 mg/dL (7-17) H 07/16/18 05:56 Creatinine 0.5 mg/dL (0.7-1.2) L 07/16/18 05:56 Estimated GFR > 60 ml/min 07/16/18 05:56 BUN/Creatinine Ratio 42 % 07/16/18 05:56 Glucose 108 mg/dL (65-100) H 07/16/18 05:56 Calcium 9.3 mg/dL (8.4-10.2) 07/16/18 05:56 Magnesium 2.00 mg/dL (1.7-2.3) 07/16/18 05:56 TSH 0.718 mlU/mL (0.270-4.200) 07/13/18 16:42 Free T4 1.49 ng/dL (0.76-1.46) H 07/13/18 16:42 Urine Color Yellow (Yellow) 07/12/18 22:14 Urine Turbidity Cloudy (Clear) 07/12/18 22:14 Urine pH 6.0 (5.0-7.0) 07/12/18 22:14 Ur Specific [place] 1.014 (1.003-1.030) 07/12/18 22:14 Urine Protein 30 mg/dl mg/dL (Negative) 07/12/18 22:14 Urine Glucose (UA) Neg mg/dL (Negative) 07/12/18 22:14 Urine Ketones Tr mg/dL (Negative) 07/12/18 22:14 Urine Blood Sm (Negative) 07/12/18 22:14 Urine Nitrite Neg (Negative) 07/12/18 22:14 Urine Bilirubin Neg (Negative) 07/12/18 22:14 Urine Urobilinogen < 2.0 mg/dL (<2.0) 07/12/18 22:14 Ur Leukocyte Esterase Neg (Negative) 07/12/18 22:14 Urine WBC (Auto) 2.0 /HPF (0.0-6.0) 07/12/18 22:14 Urine RBC (Auto) 3.0 /HPF (0.0-6.0) 07/12/18 22:14 U Epithel Cells (Auto) 1.0 /HPF (0-13.0) 07/12/18 22:14 Urine Mucus Few /HPF 07/12/18 22:14 Urine Opiates Screen Presumptive negative 07/12/18 22:14 Urine Methadone Screen Presumptive negative 07/12/18 22:14 Ur Barbiturates Screen Presumptive negative 07/12/18 22:14 Ur Phencyclidine Scrn Presumptive negative 07/12/18 22:14 Ur Amphetamines Screen Presumptive negative 07/12/18 22:14 U Benzodiazepines Scrn Presumptive negative 07/12/18 22:14 Urine Cocaine Screen Presumptive negative 07/12/18 22:14 U Marijuana (THC) Screen Presumptive negative 07/12/18 22:14 Drugs of Abuse Note Disclamer 07/12/18 22:14 Plasma/Serum Alcohol < 0.01 % (0-0.07) 07/12/18 20:59
[2018-07-16] MEDS ORDERED: KCL 10MEQ/100ML 10 MEQ/100 ML BAG IV SCH ×2 (08:00→16:00)
[2018-07-16] MEDS: VITAMIN B-1 PO SCH (11:03)
[2018-07-16] MEDS: FOLVITE PO SCH (11:04)
[2018-07-16] MEDS: KEPPRA 1,500 MG in NACL 0.9% 100 ML IV SCH ×2 (11:14→23:04)
--- NOTE | 2018-07-16 12:03 | Consultation ---
History of Present Illness - Reason for Consult Consult date: 07/16/18 Reason for consult: Mental Health Evaluation Requesting physician: STEFAN SCHOFIELD - Chief Complaint Chief complaint: "I want something to eat" - History of Present Psychiatric Illness 48 y.o. white female presenting to the ER for seizures. This patient was transferred from [place] on a invalid 1013. Today the patient is calm, but confused during the assessment. Per the staff, the patient is has had several seizures. The patient was asked several questions and she answer with, "I want more food." This patient is a poor historian at this time. Medications and Allergies Allergies Allergy/AdvReac Type Severity Reaction Status Date / Time No Known Allergies Allergy Verified 07/13/18 05:03 Active Meds: Active Medications Folic Acid (Folvite) 1 mg PO QDAY [facility] Last Admin: 07/16/18 11:04 Dose: 1 mg Hydralazine HCl (Apresoline) 10 mg IV Q6HR PRN PRN Reason: Hypertension Levetiracetam 1,500 mg/ Sodium (Chloride) 115 mls @ 400 mls/hr IV Q12HR [facility] Last Admin: 07/16/18 11:14 Dose: 400 mls/hr Lorazepam (Ativan) 2 mg IV Q4H PRN PRN Reason: Seizures Phenytoin (Dilantin) 100 mg PO Q8HR [facility] Last Admin: 07/16/18 06:49 Dose: 100 mg Thiamine HCl (Vitamin B-1) 100 mg PO QDAY [facility] Last Admin: 07/16/18 11:03 Dose: 100 mg Past psychiatric history - Past Medical History Past Medical History: seizures, other (ETOH Abuse per the record) Past Surgical History: Other (Unable to obtain) - past Psychiatric treatment and history psychiatric treatment history: Unable to obtain a psy hx and fam psy hx. - Social History Social history: other (Unable to obtain) Mental Status Exam - Vital signs Last Vital Signs Temp 99.1 F 07/16/18 04:00 Pulse 86 07/16/18 04:24 Resp 17 07/16/18 04:00 BP 141/69 07/16/18 04:00 Pulse Ox 95 07/16/18 08:31 - Exam Narrative exam: Unable to complete the MSE because of the patient's condition. Results Result Diagrams: 07/16/18 05:56 07/16/18 05:56 Abnormal lab results 07/16/18 07/16/18 Range/Units 05:56 05:56 MCV 102 H (79-97) fl MCH 34 H (28-32) pg Potassium 3.4 L (3.6-5.0) mmol/L Carbon Dioxide 20 L (22-30) mmol/L BUN 21 H (7-17) mg/dL Creatinine 0.5 L (0.7-1.2) mg/dL Glucose 108 H (65-100) mg/dL All other labs normal. Assessment and Plan Assessment and plan: Impression: Delirium. Today the patient is calm, but confused during the assessment. Medical: Status Epilepticus, Acute Encephalopathy, and Arachnoid cyst on MRI Recommendation/Plan: Gather collateral information and reassess the patient in 24 hours. Use Ativan IV only for seizure activity. Neuro is following patient. Recommend Delirium precautions below: 1. Frequently reorient patient and involve him/her in their care (simple explanations of procedures, tests, medications). 2. Lights on and shades open during daytime hours. 3. Write date and goals of care in a visible place. 4. Try to avoid unnecessary interruptions to sleep during nighttime hours. 5. Obtain glasses, hearing aids from home if patient uses these at baseline. 6. Avoid medications that may exacerbate delirium (especially narcotics, benzodiazepines, barbiturates, ambien, lunesta, and medications with excessive anticholinergic properties).
--- NOTE | 2018-07-16 14:51 | Consultation ---
History of Present Illness - Reason for Consult Consult date: 07/16/18 new onset seizures Requesting physician: STEFAN SCHOFIELD - History of Present Illness 48 y/o female with history of psychosis and alcohol abuse; admitted on 07/12/18 due to intractable generalized seizures after multiple doses of iv ativan and iv keppra drip running. Never has had a seizure before. Patient did not return to baseline between the 2 seizures. She resides currently at [facility] for psychosis on a voluntary basis. Patient is currently confused and unable to provide a full history. In the ED, temp temperature and 98.6, heart rate 82, respiration 21, O2 sat 94, blood pressure 115/69. Initial white count 13. Hemoglobin 14.5. Platelets 214. Creatinine 0.7. Urinalysis is negative. UDS negative. CT of the head showed CSF density cystic lesion ? Arachnoid cyst. MRI of the brain show 15.9 x 19 x 23 mm benign cyst in the quadrigeminal cistern. Noted fever at 100.8 on 07/15/2018. Microbiology: Blood cultures: 07/16 ngtd Current Antimicrobials: none Previous Antimicrobials: Past History Past Medical History: seizures, other (ETOH Abuse per the record) Past Surgical History: Other (Unable to obtain) Social history: other (Unable to obtain) Medications and Allergies Allergies Allergy/AdvReac Type Severity Reaction Status Date / Time No Known Allergies Allergy Verified 07/13/18 05:03 Active Meds: Active Medications Folic Acid (Folvite) 1 mg PO QDAY [facility] Last Admin: 07/16/18 11:04 Dose: 1 mg Hydralazine HCl (Apresoline) 10 mg IV Q6HR PRN PRN Reason: Hypertension Levetiracetam 1,500 mg/ Sodium (Chloride) 115 mls @ 400 mls/hr IV Q12HR [facility] Last Admin: 07/16/18 11:14 Dose: 400 mls/hr Lorazepam (Ativan) 2 mg IV Q4H PRN PRN Reason: Seizures Phenytoin (Dilantin) 100 mg PO Q8HR [facility] Last Admin: 07/16/18 14:33 Dose: 100 mg Thiamine HCl (Vitamin B-1) 100 mg PO QDAY [facility] Last Admin: 07/16/18 11:03 Dose: 100 mg Review of Systems ROS unobtainable: due to mental status Physical Examination - Physical Exam Narrative exam: General appearance: Alert in NAD, non conversant Eyes: anicteric sclerae, moist conjunctivae; no lid-lag; PERRLA HENT: Atraumatic; oropharynx clear Neck: Trachea midline; supple, no thyromegaly or lymphadenopathy Lungs: CTA CV: RRR, no murmurs Abdomen: Soft, non-tender; no masses or hepatosplenomegaly Extremities: No peripheral edema or extremity lymphadenopathy Skin: Normal temperature, turgor and texture; no rash, ulcers or subcutaneous nodules Psych: Appropriate affect, alert non verbal. Neuro: alert and oriented x 1 Lines: No CVL / PICC - Constitutional Vitals: Vital Signs Temp Pulse Resp BP Pulse Ox 99.1 F 86 17 141/69 95 07/16/18 04:00 07/16/18 04:24 07/16/18 04:00 07/16/18 04:00 07/16/18 08:31 Temperature -Last 24 Hours Temperature 99.1 F Temperature 99.2 F Temperature 98.5 F Temperature 100.3 F Temperature 100.3 F Results - Labs CBC & Chem 7: 07/16/18 05:56 07/16/18 05:56 Labs: Abnormal lab results 07/16/18 07/16/18 Range/Units 05:56 05:56 MCV 102 H (79-97) fl MCH 34 H (28-32) pg Potassium 3.4 L (3.6-5.0) mmol/L Carbon Dioxide 20 L (22-30) mmol/L BUN 21 H (7-17) mg/dL Creatinine 0.5 L (0.7-1.2) mg/dL Glucose 108 H (65-100) mg/dL Assessment and Plan Assessment: 1) SIRS: NOT Present on admission, manifested by fever, leukocytosis. Etiology unclear. DDX. asp pneumonitis. -UA neg -blood cx pending 2) Status epilepticus 3) Arachnoid cyst 4) Psychosis ? 5) Acute encephalopathy: from recent seizures Plan: -follow-up blood cultures -obtain C-reactive protein (CRP) -obtain CXR PA/lat -monitor fever/leukocytosis Thank you for your consultation, will follow up with you. Marya Tello MD Infectious Diseases Specialist [facility] ([facility]) M [phone] O [phone]
--- NOTE | 2018-07-16 16:32 | XRay Report ---
FINAL REPORT EXAM: XR CHEST ROUTINE 2V HISTORY: eval for aspiration pneumonitis TECHNIQUE: Two view chest PA and lateral PRIORS: None. FINDINGS: Cardiac and mediastinal contours are unremarkable. No focal pulmonary infiltrate is identified. No pleural fluid collection seen. Pulmonary vasculature is unremarkable. IMPRESSION: Negative two-view chest
--- NOTE | 2018-07-16 23:38 | Consultation ---
NEUROLOGICAL CONSULTATION REASON FOR CONSULTATION: Seizure. HISTORY OF PRESENT ILLNESS: The patient is a 48-year-old white female who was referred because of seizure. The patient could not give any history. She also does not talk. From the record of Dr. Jr Hill from the Emergency Department, it appeared that she presented herself at [place] for psychosis on a voluntary basis. Then, on the day of the visit to the Emergency Room, she had 2 generalized seizures and she said that she never had a seizure before. She apparently did not return to baseline between the 2 seizures and then she was described to be postictal afterwards. When the emergency service arrived, her seizures had stopped. She was given 2 mg of Ativan and she was brought to the Emergency Room for evaluation. She apparently was in the [place] for the past 5 days. The patient apparently did not remember or has no memory of what happened during that time. We do not have any relatives present at this time, so therefore they need to be contacted to get a better history. PAST MEDICAL HISTORY: Seizures only. There was nothing about alcohol abuse. PAST SURGICAL HISTORY: None known. SOCIAL HISTORY: Marital status unknown. The patient is a smoker, but did not know whether she is still smoking. REVIEW OF SYSTEMS: The patient could not be assessed because she would not talk. PHYSICAL EXAMINATION: GENERAL: Revealed a [id number] female who is in no acute distress. VITAL SIGNS: She is afebrile, 98.6. Pulse rate was about 80, respirations 16, blood pressure 130/70. Saturation 99%. HEAD, EYES, EARS, NOSE AND THROAT: Unremarkable. No intracranial or intraorbital bruit. NECK: Supple. No carotid bruit. HEART: Regular in rhythm. LUNGS: Sounds clear. ABDOMEN: Soft. EXTREMITIES: Appeared externally normal. NEUROLOGIC: Revealed a patient who is awake, but she was not talking. It is important to note that when I was going inside the room of the patient, she started to have the seizure. The seizure was characterized by focal twitching on the left side of the lower face. Then, the patient was not responsive, but her eyes were open. There was no movement in the extremities. This lasted for about at least 2-3 minutes. During that time, patient need not be protected because there were no gross motor movements. Her pupils were noted to be dilated. Then, her heart rate went up, but not that much, at least to about 99. The patient was urged to talk, but she would not, however, she could follow some verbal commands. The pupils, however, were reactive and the fundi looks normal. There was no obvious focal paralysis in the face. She has poorly kept teeth. She moves both upper and lower extremities and slightly increased tone, but at this time, I do not get voluntary movement because she is postictal. Reflexes symmetrical on both sides and she has bilateral Babinski, right more than left, although sometimes I have to scratch the foot several times. INITIAL CLINICAL IMPRESSION: 1. This patient definitely has a seizure and this seems to be a first-time seizure. Then, she has a rather prolonged postictal state. The postictal state was characterized by being mute or aphasic, but I do not know her previous status, whether this is chronic or not. It appeared from the observation that she has a focal motor seizure involving the face. Therefore, this is in the motor cortex, just above the speech center. Etiology of this is unclear, but there are reasons to think that these could be organic in terms of focal seizure. 2. Prolonged postictal state (not definite) and bilateral Babinski. 3. The patient also has a history of possible alcohol abuse and this might have a contribution to these seizures, but not certain because we have to know the degree of her alcoholism. This patient needs to continue the anticonvulsant, Dilantin. We should monitor the level and obtain also an EEG. Also, need to talk to her sister and brother to get a better history. Sixty minutes involved in the history and aggregation and collection of history and physical examination and more than 50% in the coordination of care. JOB# [id number] RANCHO/KAY
[2018-07-17 05:12] LABS: Hematocrit 39.6 % (30.3-42.9); Hemoglobin 13.6 gm/dl (10.1-14.3); Mean Corpuscular HGB Conc 34 % (30-34); Mean Corpuscular Hemoglobin 34 pg (28-32); Mean Corpuscular Volume 100 fl (79-97); Platelet Count 197 K/mm3 (140-440); Red Blood Count 3.97 M/mm3 (3.65-5.03); Red Cell Distribution Width 14.8 % (13.2-15.2)
[2018-07-17 05:50] LABS: BUN/Creatinine Ratio 34; Blood Urea Nitrogen 17 mg/dL (7-17); Hemolysis Index 6
[2018-07-17] MEDS: DILANTIN PO SCH ×2 (06:08→22:37)
--- NOTE | 2018-07-17 08:48 | Progress Note ---
Assessment and Plan Assessment and plan: Patient is a 48 yo woman from [facility] psych facility who presented to [facility] after multiple seizure episodes. There is a signed 1013 on 07/06/2018 from [facility] in the chart but I have spoken with Virgilio from Psych department and that 1013 is not valid. She developed Status Epilepticus 07/13/18 and was sent to ICU. She did not require intubation and has done well. She was transferred out of ICU on 07/14/18. D/W Daughter Alyce at bedside on Monday. Pt NOT known to be alcoholic per daughter but was on Suboxone x 5 years ( this drug was not on her [facility]' medication list). Initially, she went to [facility] ED because of overdose, mixed fentanyl (street) with suboxone and she became confused. She was admitted there for about a week. Then she discharge to [facility] facility last Monday for seizures. She has CHF , HTN, no DM. She has 3 children, with 2 sons and 1 daughter. I spoke with sonKody over the phone also -Status Epilepticus: treat with iv keppra, dilantin, EEG repeat EEG pending, Neurology is following, use IV ativan for breakthrough seizures -Acute Encephalopathy related to the above -Arachnoid cyst on MRI: incidental -Hypokalemia: replaced and recheck in am -Suspected MDD: consulted psych -?ETOH Withdrawal per [facility]'s record: treat with IV ativan prn ID and Neurology are following. CCT 34 minutes History Interval history: Patient was seen and examined. Follow-up on current diagnosis of sz and ams. Patient had seizures overnight but now currently. Hospitalist Physical - Physical exam Narrative exam: GEN: WDWN, NAD, awake alert, orientated x 1 HEENT: NCAT, EOMI, Pupils pinpt but reactive, OP Clear NECK: supple, no adenopathy, no thyromegaly, no JVD CVS/HEART: RRR, normal S1S2, pulses present bilaterally CHEST/LUNGS: CTA B, Symmetrical chest expansion, good air entry bilaterally GI/Abdomen: soft, NTND, good bowel sounds, no guarding or rebound /Bladder: no suprapubic tenderness, no CVA or paraspinal tenderness EXT/Skin: no c/c/e, no obvious rash MSK: FROM x 4 Neuro: CN 2-12 grossly intact, no new focal deficits Psych: calm - Constitutional Vitals: Temp Pulse Resp BP Pulse Ox 99.1 F 82 18 147/72 97 07/16/18 04:00 07/17/18 04:00 07/17/18 06:48 07/17/18 04:00 07/17/18 07:45 Results - Labs CBC & Chem 7: 07/17/18 04:43 07/17/18 04:43 Labs: Laboratory Last Values WBC 11.2 K/mm3 (4.5-11.0) H 07/17/18 04:43 RBC 3.97 M/mm3 (3.65-5.03) 07/17/18 04:43 Hgb 13.6 gm/dl (10.1-14.3) 07/17/18 04:43 Hct 39.6 % (30.3-42.9) 07/17/18 04:43 MCV 100 fl (79-97) H 07/17/18 04:43 MCH 34 pg (28-32) H 07/17/18 04:43 MCHC 34 % (30-34) 07/17/18 04:43 RDW 14.8 % (13.2-15.2) 07/17/18 04:43 Plt Count 197 K/mm3 (140-440) 07/17/18 04:43 Lymph % (Auto) 13.2 % (13.4-35.0) L 07/12/18 20:59 [place] % (Auto) 5.5 % (0.0-7.3) 07/12/18 20:59 Eos % (Auto) 0.2 % (0.0-4.3) 07/12/18 20:59 Baso % (Auto) 0.5 % (0.0-1.8) 07/12/18 20:59 Lymph # 1.7 K/mm3 (1.2-5.4) 07/12/18 20:59 [place] # 0.7 K/mm3 (0.0-0.8) 07/12/18 20:59 Eos # 0.0 K/mm3 (0.0-0.4) 07/12/18 20:59 Baso # 0.1 K/mm3 (0.0-0.1) 07/12/18 20:59 Seg Neutrophils % 80.6 % (40.0-70.0) H 07/12/18 20:59 Seg Neutrophils # 10.5 K/mm3 (1.8-7.7) H 07/12/18 20:59 Sodium 139 mmol/L (137-145) 07/17/18 04:43 Potassium 3.4 mmol/L (3.6-5.0) L 07/17/18 04:43 Chloride 99.7 mmol/L (98-107) 07/17/18 04:43 Carbon Dioxide 24 mmol/L (22-30) 07/17/18 04:43 Anion Gap 19 mmol/L 07/17/18 04:43 BUN 17 mg/dL (7-17) 07/17/18 04:43 Creatinine 0.5 mg/dL (0.7-1.2) L 07/17/18 04:43 Estimated GFR > 60 ml/min 07/17/18 04:43 BUN/Creatinine Ratio 34 % 07/17/18 04:43 Glucose 108 mg/dL (65-100) H 07/17/18 04:43 Calcium 9.0 mg/dL (8.4-10.2) 07/17/18 04:43 Magnesium 2.00 mg/dL (1.7-2.3) 07/16/18 05:56 TSH 0.718 mlU/mL (0.270-4.200) 07/13/18 16:42 Free T4 1.49 ng/dL (0.76-1.46) H 07/13/18 16:42 Urine Color Yellow (Yellow) 07/12/18 22:14 Urine Turbidity Cloudy (Clear) 07/12/18 22:14 Urine pH 6.0 (5.0-7.0) 07/12/18 22:14 Ur Specific [place] 1.014 (1.003-1.030) 07/12/18 22:14 Urine Protein 30 mg/dl mg/dL (Negative) 07/12/18 22:14 Urine Glucose (UA) Neg mg/dL (Negative) 07/12/18 22:14 Urine Ketones Tr mg/dL (Negative) 07/12/18 22:14 Urine Blood Sm (Negative) 07/12/18 22:14 Urine Nitrite Neg (Negative) 07/12/18 22:14 Urine Bilirubin Neg (Negative) 07/12/18 22:14 Urine Urobilinogen < 2.0 mg/dL (<2.0) 07/12/18 22:14 Ur Leukocyte Esterase Neg (Negative) 07/12/18 22:14 Urine WBC (Auto) 2.0 /HPF (0.0-6.0) 07/12/18 22:14 Urine RBC (Auto) 3.0 /HPF (0.0-6.0) 07/12/18 22:14 U Epithel Cells (Auto) 1.0 /HPF (0-13.0) 07/12/18 22:14 Urine Mucus Few /HPF 07/12/18 22:14 Urine Opiates Screen Presumptive negative 07/12/18 22:14 Urine Methadone Screen Presumptive negative 07/12/18 22:14 Ur Barbiturates Screen Presumptive negative 07/12/18 22:14 Phenytoin 2.3 ug/mL (10.0-20.0) L 07/16/18 19:03 Ur Phencyclidine Scrn Presumptive negative 07/12/18 22:14 Ur Amphetamines Screen Presumptive negative 07/12/18 22:14 U Benzodiazepines Scrn Presumptive negative 07/12/18 22:14 Urine Cocaine Screen Presumptive negative 07/12/18 22:14 U Marijuana (THC) Screen Presumptive negative 07/12/18 22:14 Drugs of Abuse Note Disclamer 07/12/18 22:14 Plasma/Serum Alcohol < 0.01 % (0-0.07) 07/12/18 20:59
[2018-07-17] MEDS ORDERED: K-DUR PO NR (09:00)
--- NOTE | 2018-07-17 10:32 | Progress Note ---
Subjective - Reason for Consult Consult date: 07/17/18 Reason for consult: Psychiatry Follow-up - Chief Complaint Chief complaint: "I am tired" 48 y.o. white female presenting to the ER for seizures. This patient was transferred from [place] on a invalid 1013. Today the patient is calm during the assessment. She is more lucid today per previous interview (07/16/2018), but struggles answering some questions. She was able to state her and follow some commands when asked. She vaguely remember why she was admitted to [facility] , but denies trying to kill herself prior her admission. She nodded her head to "yes" when asked does she have a substance abuse hx. She denies SI/HI's and AVH' s. Mental Status Exam - Vital signs Last Vital Signs Temp 99.0 F 07/17/18 08:00 Pulse 82 07/17/18 04:00 Resp 18 07/17/18 06:48 BP 147/72 07/17/18 04:00 Pulse Ox 97 07/17/18 07:45 - Exam Narrative exam: MSE: Appearance: calm Behavior: regular eye contact Speech: regular rate and low tone Mood: "tired" Affect: congruent to mood Thought Process: circumstantial Thought Content: denies SI/HI's and AVH's Motor Activity: ambulatory Cognition: A/O x 3 Insight: limited Judgment: fair Assessment and Plan Impression: Delirium. Today the patient is calm during the assessment. Medical: Status Epilepticus, Acute Encephalopathy, and Arachnoid cyst on MRI Recommendation/Plan: Continue to gather collateral information to help determine proper treatment and dispo. Use Ativan IV only for seizure activity. Neuro is following patient. Recommend Delirium precautions below: 1. Frequently reorient patient and involve him/her in their care (simple explanations of procedures, tests, medications). 2. Lights on and shades open during daytime hours. 3. Write date and goals of care in a visible place. 4. Try to avoid unnecessary interruptions to sleep during nighttime hours. 5. Obtain glasses, hearing aids from home if patient uses these at baseline. 6. Avoid medications that may exacerbate delirium (especially narcotics, benzodiazepines, barbiturates, ambien, lunesta, and medications with excessive anticholinergic properties).
--- NOTE | 2018-07-17 10:49 | Progress Note ---
Assessment and Plan Assessment: 1) SIRS: NOT Present on admission, manifested by fever, leukocytosis - better. Etiology unclear. -UA neg -blood cx pending -CXR neg -CRP=0.2 2) Status epilepticus 3) Arachnoid cyst 4) Psychosis ? 5) Acute encephalopathy: from recent seizures Plan: -follow-up blood cultures -monitor fever/leukocytosis -monitor off antibiotics Thank you for your consultation, will follow up with you. Marya Tello MD Infectious Diseases Specialist [facility] [id number] [phone] O [phone] Subjective Date of service: 07/17/18 Principal diagnosis: SIRS Interval history: No fever last 12 h, no complaints., minimally verbal. Microbiology: Blood cultures: 07/16 ngtd Current Antimicrobials: none Previous Antimicrobials: Objective - Exam Narrative Exam: General appearance: Alert in NAD, non conversant Eyes: anicteric sclerae, moist conjunctivae; no lid-lag; PERRLA HENT: Atraumatic; oropharynx clear Neck: Trachea midline; supple, no thyromegaly or lymphadenopathy Lungs: CTA CV: RRR, no murmurs Abdomen: Soft, non-tender; no masses or hepatosplenomegaly Extremities: No peripheral edema or extremity lymphadenopathy Skin: Normal temperature, turgor and texture; no rash, ulcers or subcutaneous nodules Psych: Appropriate affect, alert non verbal. Neuro: alert and oriented x 1 Lines: No CVL / PICC - Constitutional Vitals: Vital Signs Temp Pulse Resp BP Pulse Ox 99.0 F 82 18 147/72 97 07/17/18 08:00 07/17/18 04:00 07/17/18 06:48 07/17/18 04:00 07/17/18 07:45 Temperature -Last 24 Hours Temperature 99.0 F - Labs CBC & Chem 7: 07/17/18 04:43 07/17/18 04:43 Labs: Abnormal lab results 07/16/18 07/17/18 07/17/18 Range/Units 19:03 04:43 04:43 WBC 11.2 H (4.5-11.0) K/mm3 MCV 100 H (79-97) fl MCH 34 H (28-32) pg Potassium 3.4 L (3.6-5.0) mmol/L Creatinine 0.5 L (0.7-1.2) mg/dL Glucose 108 H (65-100) mg/dL Phenytoin 2.3 L (10.0-20.0) ug/mL
[2018-07-17] MEDS ORDERED: ATIVAN ONE (11:57)
[2018-07-17] MEDS: VITAMIN B-1 PO SCH (12:08)
[2018-07-17] MEDS: FOLVITE PO SCH (12:08)
[2018-07-17] MEDS: KEPPRA PO SCH (22:36)
--- NOTE | 2018-07-18 02:20 | Physician Progress Note ---
SUBJECTIVE: The patient has seizures. I finally was able to talk to the sister as well as the . The patient is doing well without any problem; however, she apparently has been taking Xanax and Klonopin of unknown dose for the last 45 years. She was also taking some kind of pain medication to help her get off the pain pills for which she was taking also like oxycodone and all the strong medication. They did not know where she was having pain, maybe all over her body. She has been doing very well on this until about 2 weeks ago when apparently she took her 's medication of fentanyl patch. Then, she became confused, delirious and she was almost psychotic. At that time, they brought her to [facility]. Apparently, [facility] is a mental hospital. They stopped the medication, one of them is called ____. She did very well; however, while she was there, she developed a seizure and that is the reason why she was transferred to this facility. Right now, that is her main problem. She is taking lorazepam p.r.n., phenytoin 100 mg every 8 hours p.o. and levetiracetam 1500 mg every 12 hours. OBJECTIVE: GENERAL: The patient now is much better. She looks healthy. She is now talking and communicating. VITAL SIGNS: Stable. HEART AND LUNGS: Normal. NEUROLOGIC: She is communicating, but the voice is still not strong. However, she is appropriate. No focal findings, no obvious neurologic deficit. IMAGING: The patient already had an MRI that showed no acute lesion except for a cyst. IMPRESSION: Acute psychotic symptoms probably related to the medication. We do not know which medication caused this, but I suspect possible fentanyl patch, which is being used by her or possible withdrawal to Xanax and Klonopin. This story is still not very clear. The cyst in the MRI scan is unlikely to be the cause of the seizure. PLAN: At this time, I will review the EEG hopefully done with the sleep. I will adjust the phenytoin and levetiracetam. Check the phenytoin level. This was fully discussed with the and the sister. JOB# [id number] RANCHO/KAY
[2018-07-18] MEDS: KEPPRA 1,500 MG in NACL 0.9% 100 ML IV SCH (08:17)
--- NOTE | 2018-07-18 08:24 | Progress Note ---
Assessment and Plan Assessment and plan: Patient is a 48 yo woman from [facility] psych facility who presented to [facility] after multiple seizure episodes. There is a signed 1013 on 07/06/2018 from [facility] in the chart but I have spoken with Virgilio from Psych department and that 1013 is not valid. She developed Status Epilepticus 07/13/18 and was sent to ICU. She did not require intubation and has done well. She was transferred out of ICU on 07/14/18. D/W Daughter Alyce at bedside on Monday. Pt NOT known to be alcoholic per daughter but was on Suboxone x 5 years ( this drug was not on her [facility]' medication list). Initially, she went to [facility] ED because of overdose, mixed fentanyl (street) with suboxone and she became confused. She was admitted there for about a week. Then she discharge to [facility] facility last Monday for seizures. She has CHF , HTN, no DM. She has 3 children, with 2 sons and 1 daughter. I spoke with sonKody over the phone also. I called sister Lima, no answer yesterday. -Status Epilepticus: treat with iv keppra, dilantin, EEG repeat EEG pending, Neurology is following, use IV ativan for breakthrough seizures -SIRS non infectious, evaluated by ID -Acute Encephalopathy related to the above, still present, will consult PT/OT -Arachnoid cyst on MRI: incidental -Hypokalemia: replaced and recheck in am -Suspected MDD: consulted psych -?ETOH Withdrawal per [facility]'s record: treat with IV ativan prn ID and Neurology are following. History Interval history: Patient was seen and examined. Follow-up on current diagnosis of sz and ams. No seizures documented last night, but she was screaming and yelling per Nursing note. Hospitalist Physical - Physical exam Narrative exam: GEN: WDWN, NAD, awake alert, orientated x 2 HEENT: NCAT, EOMI, Pupils pinpt but reactive, OP Clear NECK: supple, no adenopathy, no thyromegaly, no JVD CVS/HEART: RRR, normal S1S2, pulses present bilaterally CHEST/LUNGS: CTA B, Symmetrical chest expansion, good air entry bilaterally GI/Abdomen: soft, NTND, good bowel sounds, no guarding or rebound /Bladder: no suprapubic tenderness, no CVA or paraspinal tenderness EXT/Skin: no c/c/e, no obvious rash MSK: FROM x 4 Neuro: CN 2-12 grossly intact, no new focal deficits Psych: calm - Constitutional Vitals: Temp Pulse Resp BP Pulse Ox 98.0 F 78 19 155/82 97 07/18/18 06:00 07/18/18 06:00 07/18/18 06:00 07/18/18 06:00 07/18/18 06:00 Results - Labs CBC & Chem 7: 07/17/18 04:43 07/17/18 04:43 Labs: Laboratory Last Values WBC 11.2 K/mm3 (4.5-11.0) H 07/17/18 04:43 RBC 3.97 M/mm3 (3.65-5.03) 07/17/18 04:43 Hgb 13.6 gm/dl (10.1-14.3) 07/17/18 04:43 Hct 39.6 % (30.3-42.9) 07/17/18 04:43 MCV 100 fl (79-97) H 07/17/18 04:43 MCH 34 pg (28-32) H 07/17/18 04:43 MCHC 34 % (30-34) 07/17/18 04:43 RDW 14.8 % (13.2-15.2) 07/17/18 04:43 Plt Count 197 K/mm3 (140-440) 07/17/18 04:43 Lymph % (Auto) 13.2 % (13.4-35.0) L 07/12/18 20:59 [place] % (Auto) 5.5 % (0.0-7.3) 07/12/18 20:59 Eos % (Auto) 0.2 % (0.0-4.3) 07/12/18 20:59 Baso % (Auto) 0.5 % (0.0-1.8) 07/12/18 20:59 Lymph # 1.7 K/mm3 (1.2-5.4) 07/12/18 20:59 [place] # 0.7 K/mm3 (0.0-0.8) 07/12/18 20:59 Eos # 0.0 K/mm3 (0.0-0.4) 07/12/18 20:59 Baso # 0.1 K/mm3 (0.0-0.1) 07/12/18 20:59 Seg Neutrophils % 80.6 % (40.0-70.0) H 07/12/18 20:59 Seg Neutrophils # 10.5 K/mm3 (1.8-7.7) H 07/12/18 20:59 Sodium 139 mmol/L (137-145) 07/17/18 04:43 Potassium 3.4 mmol/L (3.6-5.0) L 07/17/18 04:43 Chloride 99.7 mmol/L (98-107) 07/17/18 04:43 Carbon Dioxide 24 mmol/L (22-30) 07/17/18 04:43 Anion Gap 19 mmol/L 07/17/18 04:43 BUN 17 mg/dL (7-17) 07/17/18 04:43 Creatinine 0.5 mg/dL (0.7-1.2) L 07/17/18 04:43 Estimated GFR > 60 ml/min 07/17/18 04:43 BUN/Creatinine Ratio 34 % 07/17/18 04:43 Glucose 108 mg/dL (65-100) H 07/17/18 04:43 Calcium 9.0 mg/dL (8.4-10.2) 07/17/18 04:43 Magnesium 2.00 mg/dL (1.7-2.3) 07/16/18 05:56 C-Reactive Protein 0.20 mg/dL (0.00-1.30) 07/17/18 04:27 TSH 0.718 mlU/mL (0.270-4.200) 07/13/18 16:42 Free T4 1.49 ng/dL (0.76-1.46) H 07/13/18 16:42 Urine Color Yellow (Yellow) 07/12/18 22:14 Urine Turbidity Cloudy (Clear) 07/12/18 22:14 Urine pH 6.0 (5.0-7.0) 07/12/18 22:14 Ur Specific [place] 1.014 (1.003-1.030) 07/12/18 22:14 Urine Protein 30 mg/dl mg/dL (Negative) 07/12/18 22:14 Urine Glucose (UA) Neg mg/dL (Negative) 07/12/18 22:14 Urine Ketones Tr mg/dL (Negative) 07/12/18 22:14 Urine Blood Sm (Negative) 07/12/18 22:14 Urine Nitrite Neg (Negative) 07/12/18 22:14 Urine Bilirubin Neg (Negative) 07/12/18 22:14 Urine Urobilinogen < 2.0 mg/dL (<2.0) 07/12/18 22:14 Ur Leukocyte Esterase Neg (Negative) 07/12/18 22:14 Urine WBC (Auto) 2.0 /HPF (0.0-6.0) 07/12/18 22:14 Urine RBC (Auto) 3.0 /HPF (0.0-6.0) 07/12/18 22:14 U Epithel Cells (Auto) 1.0 /HPF (0-13.0) 07/12/18 22:14 Urine Mucus Few /HPF 07/12/18 22:14 Urine Opiates Screen Presumptive negative 07/12/18 22:14 Urine Methadone Screen Presumptive negative 07/12/18 22:14 Ur Barbiturates Screen Presumptive negative 07/12/18 22:14 Phenytoin 5.3 ug/mL (10.0-20.0) L 07/17/18 16:59 Ur Phencyclidine Scrn Presumptive negative 07/12/18 22:14 Ur Amphetamines Screen Presumptive negative 07/12/18 22:14 U Benzodiazepines Scrn Presumptive negative 07/12/18 22:14 Urine Cocaine Screen Presumptive negative 07/12/18 22:14 U Marijuana (THC) Screen Presumptive negative 07/12/18 22:14 Drugs of Abuse Note Disclamer 07/12/18 22:14 Plasma/Serum Alcohol < 0.01 % (0-0.07) 07/12/18 20:59
[2018-07-18] MEDS: VITAMIN B-1 PO SCH (09:45)
[2018-07-18] MEDS: FOLVITE PO SCH (09:45)
[2018-07-18] MEDS: KEPPRA PO SCH ×2 (09:45→21:49)
--- NOTE | 2018-07-18 10:21 | Progress Note ---
Assessment and Plan Assessment: 1) SIRS: NOT Present on admission, manifested by fever, leukocytosis - resolved . Etiology unclear. -UA neg -blood cx pending -CXR neg -CRP=0.2 2) Status epilepticus 3) Arachnoid cyst 4) Psychosis ? better 5) Acute encephalopathy: from recent seizures Plan: -monitor fever/leukocytosis -monitor off antibiotics I am signing off Thank you for your consultation, will follow up with you. Marya Tello MD Infectious Diseases Specialist [facility] M [phone] O [phone] Subjective Date of service: 07/18/18 Principal diagnosis: SIRS Interval history: No fever for more than 72h, no complaints, more alert, talking and interactive. Microbiology: Blood cultures: 07/16 neg Current Antimicrobials: none Previous Antimicrobials: Objective - Exam Narrative Exam: General appearance: Alert in NAD, non conversant Eyes: anicteric sclerae, moist conjunctivae; no lid-lag; PERRLA HENT: Atraumatic; oropharynx clear Neck: Trachea midline; supple, no thyromegaly or lymphadenopathy Lungs: CTA CV: RRR, no murmurs Abdomen: Soft, non-tender; no masses or hepatosplenomegaly Extremities: No peripheral edema or extremity lymphadenopathy Skin: Normal temperature, turgor and texture; no rash, ulcers or subcutaneous nodules Psych: Appropriate affect, alert non verbal. Neuro: alert and oriented x 1 Lines: No CVL / PICC - Constitutional Vitals: Vital Signs Temp Pulse Resp BP Pulse Ox 98.4 F 78 19 155/82 97 07/18/18 08:00 07/18/18 06:00 07/18/18 06:00 07/18/18 06:00 07/18/18 06:00 Temperature -Last 24 Hours Temperature 98.4 F Temperature 98.0 F Temperature 98.5 F Temperature 98.6 F Temperature 98 F Temperature 99.0 F Temperature 97.8 F - Labs CBC & Chem 7: 07/17/18 04:43 07/17/18 04:43 Labs: Abnormal lab results 07/17/18 Range/Units 16:59 Phenytoin 5.3 L (10.0-20.0) ug/mL
--- NOTE | 2018-07-18 14:11 | Progress Note ---
Subjective - Reason for Consult Consult date: 07/18/18 Reason for consult: Psychiatric Follow-up Examination - Chief Complaint Chief complaint: "I am okay" Patient is a 48 y.o. white female who presents to the ER for seizures. This patient was transferred from [place] on a invalid 1013. Today the patient is calm during the assessment. Throughout the assessment patient is selectively mute. Responses to questions are delayed and unanswered. Sister, Lima Gillis, is at bedside. Per sister patient had her first seizure at [facility], which resulted in her current hospitalization. Prior to her hospitalization, patient's sister report that patient was coherent and responsive. Currently, she denies SI/HI, A/VH's, and delusions. Mental Status Exam - Vital signs Last Vital Signs Temp 97.5 F L 07/18/18 11:43 Pulse 78 07/18/18 06:00 Resp 19 07/18/18 06:00 BP 155/82 07/18/18 06:00 Pulse Ox 97 07/18/18 06:00 - Exam Narrative exam: Mental Status Exam General Appearance: Causally Dressed-hospital gown Eye Contact: Poor Orientation: Alert and oriented x 1 (person) Attitude/Behavior: Evasive, guarded Sensorium: Distracted Psychomotor & Musculoskeletal Activity: Laying in bed Mood: " I'm okay" Affect: Incongruent Speech/Language: Selectively mute, head gestures Thought Processes: Unable to assess. Thought Content: Impoverished Perception: Patient denies. Concentration/Attention: Impaired Suicidal Ideations/Plan: Patient denies. Homicidal Ideations/Plan: Patient denies. Judgment: Limited Insight: Fair to Poor Assessment and Plan Impression: Delirium. Today the patient is calm during the assessment. Patient is selectively mute throughout the assessment. Patient denies SI/HI, A/VH, and delusions. Medical: Status Epilepticus, Acute Encephalopathy, and Arachnoid cyst on MRI Recommendation/Plan: Continue to gather collateral information to help determine proper treatment and dispo. Use Ativan IV only for seizure activity. Neuro is following patient. Recommend Delirium precautions below: 1. Frequently reorient patient and involve him/her in their care (simple explanations of procedures, tests, medications). 2. Lights on and shades open during daytime hours. 3. Write date and goals of care in a visible place. 4. Try to avoid unnecessary interruptions to sleep during nighttime hours. 5. Obtain glasses, hearing aids from home if patient uses these at baseline. 6. Avoid medications that may exacerbate delirium (especially narcotics, benzodiazepines, barbiturates, ambien, lunesta, and medications with excessive anticholinergic properties).
[2018-07-18] MEDS: DILANTIN PO SCH ×2 (15:06→21:49)
--- NOTE | 2018-07-19 01:45 | Physician Progress Note ---
SUBJECTIVE: The patient is being seen because of seizure. She also has a problem with psychosis. She has prolonged postictal state. Right now, she is much better. There has been no further seizure. I spoke with her and sister yesterday, and they gave me a good history. As mentioned, her EEG previously was showing ____, but this was during the time of the previous neurologist. EEG at this time was not satisfactory. ASSESSMENT: Focal motor seizures, psychiatric disorder, alcohol abuse. PLAN: Continue the same anticonvulsant. We will repeat the EEG tomorrow and decide about anticonvulsant. JOB# [id number] RANCHO/KAY
[2018-07-19 06:10] LABS: Hematocrit 43.5 % (30.3-42.9); Hemoglobin 14.6 gm/dl (10.1-14.3); Mean Corpuscular HGB Conc 34 % (30-34); Mean Corpuscular Hemoglobin 34 pg (28-32); Mean Corpuscular Volume 101 fl (79-97); Platelet Count 269 K/mm3 (140-440); Red Blood Count 4.33 M/mm3 (3.65-5.03); Red Cell Distribution Width 14.7 % (13.2-15.2)
[2018-07-19 06:44] LABS: BUN/Creatinine Ratio 33; Blood Urea Nitrogen 13 mg/dL (7-17); Calcium 9.4 mg/dL (8.4-10.2); Hemolysis Index 6
[2018-07-19] MEDS: DILANTIN PO SCH ×4 (06:58→23:11)
[2018-07-19] MEDS: FOLVITE PO SCH (10:43)
[2018-07-19] MEDS: KEPPRA PO SCH ×2 (10:44→23:09)
[2018-07-19] MEDS: VITAMIN B-1 PO SCH (10:44)
--- NOTE | 2018-07-19 12:45 | Progress Note ---
Subjective - Reason for Consult Consult date: 07/19/18 Reason for consult: Psychiatry Follow-up - Chief Complaint Chief complaint: "Hello to you" Patient is a 48 y.o. white female who presents to the ER for seizures. This patient was transferred from [place] on a invalid 1013. Today the patient is calm during the assessment. She still has delayed responses to questions asked of her. Per her assigned nurse, the patient had seizure activity earlier today. She denies SI/HI's. Mental Status Exam - Vital signs Last Vital Signs Temp 98.7 F 07/19/18 08:00 Pulse 90 07/19/18 08:00 Resp 16 07/19/18 08:00 BP 144/95 07/19/18 08:00 Pulse Ox 98 07/19/18 08:00 - Exam Narrative exam: MSE: Appearance: calm Behavior: regular eye contact Speech: regular rate and low tone Mood: "okay" Affect: blunted Thought Process: unable to assess Thought Content: denies SI/HI's and AVH's Motor Activity: lying in bed Cognition: A/O x 3 Insight: limited Judgment: unable to assess Assessment and Plan Impression: Delirium. Today the patient is calm during the assessment. The patient is having frequent seizures. Medical: Status Epilepticus, Acute Encephalopathy, and Arachnoid cyst on MRI Recommendation/Plan: Use Ativan IV only for seizure activity. Neuro is following patient. Psychiatry is sign off, re-consult when seizures has lessen. Recommend Delirium precautions below: 1. Frequently reorient patient and involve him/her in their care (simple explanations of procedures, tests, medications). 2. Lights on and shades open during daytime hours. 3. Write date and goals of care in a visible place. 4. Try to avoid unnecessary interruptions to sleep during nighttime hours. 5. Obtain glasses, hearing aids from home if patient uses these at baseline. 6. Avoid medications that may exacerbate delirium (especially narcotics, benzodiazepines, barbiturates, ambien, lunesta, and medications with excessive anticholinergic properties).
--- NOTE | 2018-07-20 02:50 | Physician Progress Note ---
NEUROLOGY PROGRESS NOTE SUBJECTIVE: The patient is still not doing well. She is encephalopathic. She is not responding well. I believe, she has problem also with psychosis. She is being followed by Psychiatry. I was wondering whether she has a prolonged postictal state. As mentioned before, her previous EEG was paroxysmal. The EEG would have been repeated today, we will be checking. OBJECTIVE EXAMINATION: The patient is awake, but she does not respond very well. She just looks at me and then when I asked her she would not even repeat, but when I first came to the room, she said stefani. ASSESSMENT: Focal motor seizures, history of alcohol abuse, psychiatric disorder, questionable prolonged postictal state, uncontrolled seizure. PLAN: We will check the repeat EEG, I hope it was done and decide about anticonvulsant. JOB# [id number] RANCHO/KAY
[2018-07-20] MEDS: DILANTIN PO SCH ×3 (06:49→22:10)
--- NOTE | 2018-07-20 09:49 | Progress Note ---
Assessment and Plan -Status Epilepticus: treat with iv keppra, dilantin, EEG repeat EEG pending, Neurology is following, use IV ativan for breakthrough seizures -SIRS non infectious, evaluated by ID -Acute Encephalopathy related to the above, still present, will consult PT/OT -Arachnoid cyst on MRI: incidental -Hypokalemia: replaced -Suspected MDD: consulted psych -?ETOH Withdrawal per Chimayo's record: treat with IV ativan prn ID and Neurology are following. Subjective Date of service: 07/20/18 Principal diagnosis: SIRS/Seizure disorder Interval history: Doing well Objective - Constitutional Vitals: Vital Signs - 12hr 07/20/18 07/20/18 07/20/18 00:00 04:00 08:00 Temperature 98.2 F 98.4 F 98.2 F Pulse Rate 88 88 93 H Respiratory 19 20 20 Rate Blood Pressure 182/88 169/85 176/98 [Right] O2 Sat by Pulse 97 97 94 Oximetry General appearance: Present: no acute distress, well-nourished - EENT Eyes: PERRL, EOM intact ENT: hearing intact, clear oral mucosa Ears: bilateral: normal - Neck Neck: supple, normal ROM - Respiratory Respiratory effort: normal Respiratory: bilateral: CTA - Breasts Breasts: normal - Cardiovascular Rhythm: regular Heart Sounds: Present: S1 & S2. Absent: gallop, rub Extremities: pulses intact, No edema, normal color, Full ROM - Gastrointestinal General gastrointestinal: Present: soft, non-tender, non-distended, normal bowel sounds - Genitourinary Female genitourinary: normal - Integumentary Integumentary: clear, warm, dry - Musculoskeletal Musculoskeletal: 1, strength equal bilaterally - Neurologic Neurologic: moves all extremities - Psychiatric Psychiatric: memory intact, appropriate mood/affect, intact judgment & insight - Labs CBC & Chem 7: 07/19/18 05:08 07/19/18 05:08
[2018-07-20] MEDS: KEPPRA PO SCH ×2 (09:53→22:09)
[2018-07-20] MEDS: VITAMIN B-1 PO SCH (09:53)
[2018-07-20] MEDS: FOLVITE PO SCH (09:53)
--- NOTE | 2018-07-20 13:36 | Progress Note ---
Assessment and Plan Assesment and plan. -Status Epilepticus: treat with iv keppra, dilantin, EEG ,---EEG at present with multiple diffuse sharp waves, generalized, slow background. Neurology is following, use IV ativan for breakthrough seizures -SIRS non infectious---resolved -Acute Encephalopathy related to the above, still present, will consult PT/OT -Arachnoid cyst on MRI: incidental -Hypokalemia: replaced -Suspected MDD: consulted psych -ETOH Withdrawal per Alexey's record: treat with IV ativan prn -Severe Debility---Needs PT/OT Discharge planning issues--patient ready for discharge.Family doesn't want to take her home b/c of her inability to walk. Will discharge if patient able to walk.Or SNF--but patient has payor source problems. D/w case management and Family at bedside. Subjective Date of service: 07/20/18 Principal diagnosis: SIRS/Seizure disorder Interval history: Doing well No seizures in recent 36 hrs Talking slowly and limited conversation. As per family -good improvemnt Objective - Constitutional Vitals: Vital Signs - 12hr 07/20/18 07/20/18 07/20/18 04:00 08:00 10:00 Temperature 98.4 F 98.2 F Pulse Rate 88 93 H 118 H Respiratory 20 20 Rate Blood Pressure 169/85 176/98 [Right] O2 Sat by Pulse 97 94 Oximetry 07/20/18 12:00 Temperature 98.8 F Pulse Rate 118 H Respiratory 21 Rate Blood Pressure 138/96 [Right] O2 Sat by Pulse 96 Oximetry General appearance: Present: no acute distress, well-nourished - EENT Eyes: PERRL, EOM intact ENT: hearing intact, clear oral mucosa Ears: bilateral: normal - Neck Neck: supple, normal ROM - Respiratory Respiratory effort: normal Respiratory: bilateral: CTA - Breasts Breasts: normal - Cardiovascular Rhythm: regular Heart Sounds: Present: S1 & S2. Absent: gallop, rub Extremities: pulses intact, No edema, normal color, Full ROM - Gastrointestinal General gastrointestinal: Present: soft, non-tender, non-distended, normal bowel sounds Rectal Exam: deferred - Genitourinary Female genitourinary: normal - Integumentary Integumentary: clear, warm, dry - Musculoskeletal Musculoskeletal: strength equal bilaterally, generalized weakness - Neurologic Neurologic: CNII-XII intact, moves all extremities, other (Not able to walk) - Psychiatric Psychiatric: memory intact, appropriate mood/affect, intact judgment & insight - Labs CBC & Chem 7: 07/19/18 05:08 07/19/18 05:08
[2018-07-20] MEDS ORDERED: K-DUR PO ONE (13:41)
[2018-07-20] MEDS: ATIVAN IV PRN ×2 (13:45→18:41)
--- NOTE | 2018-07-20 19:08 | Physician Progress Note ---
NEUROLOGY PROGRESS NOTE SUBJECTIVE: The patient is doing well and that she has no seizures; however, she still looks encephalopathic. She is responding, but not to when you talk to her, she will just be looking at you. It is noted that she has a history of psychiatric problem. Seizure is a problem right now. OBJECTIVE EXAMINATION: Vital signs are stable. She does not respond very well. She does not talk as much. She would follow some commands. ASSESSMENT: She shows focal motor psychiatric disorder. History of alcohol abuse. Her seizure I believe is still uncontrolled. PLAN: 1. Control of seizure. 2. Psychiatric treatment. 3. EEG still waiting to be done. 4. Dilantin level is very low. Therefore, we will increase Dilantin to 200 mg p.o. b.i.d. 5. The patient has a benign arachnoid cyst in the quadrigeminal cistern. I do not think that this is causing the seizures. Prognosis is failure. I will be leaving the local assignment at this time and the new neurologist will continue to follow. To the hospitalist, please note this record. JOB# [id number] RANCHO/KAY
[2018-07-20] MEDS ORDERED: LIBRIUM PO PRN (21:32)
[2018-07-20] MEDS ORDERED: ATIVAN IV PRN ×2 (21:32)
[2018-07-21 05:54] LABS: Basophils # (Auto) 0.1 K/mm3 (0.0-0.1); Basophils % (Auto) 0.6 % (0.0-1.8); Eosinophils # (Auto) 0.1 K/mm3 (0.0-0.4); Eosinophils % (Auto) 1.3 % (0.0-4.3); Hematocrit 45.3 % (30.3-42.9); Hemoglobin 15.3 gm/dl (10.1-14.3); Lymphocytes # (Auto) 2.8 K/mm3 (1.2-5.4); Mean Corpuscular HGB Conc 34 % (30-34); Mean Corpuscular Hemoglobin 34 pg (28-32); Mean Corpuscular Volume 102 fl (79-97); Monocytes # (Auto) 0.8 K/mm3 (0.0-0.8); Monocytes % (Auto) 6.8 % (0.0-7.3); Platelet Count 269 K/mm3 (140-440); Red Blood Count 4.43 M/mm3 (3.65-5.03); Red Cell Distribution Width 14.7 % (13.2-15.2)
[2018-07-21 08:15] LABS: Alanine Aminotransferase 16 units/L (7-56); Albumin 4.1 g/dL (3.9-5); BUN/Creatinine Ratio 26; Blood Urea Nitrogen 13 mg/dL (7-17); Calcium 9.4 mg/dL (8.4-10.2); Hemolysis Index 17
[2018-07-21] MEDS: KEPPRA PO SCH ×2 (09:59→20:59)
[2018-07-21] MEDS: DILANTIN PO SCH ×2 (09:59→20:59)
[2018-07-21] MEDS: VITAMIN B-1 PO SCH (09:59)
[2018-07-21] MEDS: FOLVITE PO SCH (10:01)
--- NOTE | 2018-07-21 14:59 | Progress Note ---
Assessment and Plan Assessment and plan: -Status Epilepticus: treat with iv keppra, dilantin, EEG ,---EEG at present with multiple diffuse sharp waves, generalized, slow background. Neurology is following, use IV ativan for breakthrough seizures -SIRS non infectious---resolved -Acute Encephalopathy related to the above, still present, will consult PT/OT -Arachnoid cyst on MRI: incidental -Hypokalemia: replaced -Suspected MDD: consulted psych -ETOH Withdrawal per Alexey's record: treat with IV ativan prn -Severe Debility---Needs PT/OT Discharge planning issues--patient ready for discharge. Family doesn't want to take her home b/c of her inability to walk. Patient needs ongoing Psych care and possibly inpatient due to persistent hallucination and refusal of medication. Will discuss with Psych Will discharge if patient able to walk.Or SNF--but patient has payor source problems. D/w case management and Family at bedside. History Interval history: Patient seen and examined, still very drowsy this morning, moans, still with hallucination per nursing staff Hospitalist Physical - Physical exam Narrative exam: General appearance: Present: no acute distress, well-nourished - EENT Eyes: PERRL, EOM intact ENT: hearing intact, clear oral mucosa Ears: bilateral: normal - Neck Neck: supple, normal ROM - Respiratory Respiratory effort: normal Respiratory: bilateral: CTA - Breasts Breasts: normal - Cardiovascular Rhythm: regular Heart Sounds: Present: S1 & S2. Absent: gallop, rub Extremities: pulses intact, No edema, normal color, Full ROM - Gastrointestinal General gastrointestinal: Present: soft, non-tender, non-distended, normal bowel sounds Rectal Exam: deferred - Genitourinary Female genitourinary: normal - Integumentary Integumentary: clear, warm, dry - Musculoskeletal Musculoskeletal: strength equal bilaterally, generalized weakness - Neurologic Neurologic: CNII-XII intact, moves all extremities, other (Not able to walk) - Psychiatric Psychiatric: memory intact, appropriate mood/affect, intact judgment & insight - Constitutional Vitals: Temp Pulse Resp BP Pulse Ox 98.3 F 113 H 96 H 117/66 99 07/21/18 13:00 07/21/18 13:00 07/21/18 13:00 07/21/18 13:07/21/18 09:00 General appearance: Present: no acute distress, well-nourished Results - Labs CBC & Chem 7: 07/21/18 05:13 07/21/18 05:13 Labs: Laboratory Last Values WBC 11.1 K/mm3 (4.5-11.0) H 07/21/18 05:13 RBC 4.43 M/mm3 (3.65-5.03) 07/21/18 05:13 Hgb 15.3 gm/dl (10.1-14.3) H 07/21/18 05:13 Hct 45.3 % (30.3-42.9) H 07/21/18 05:13 MCV 102 fl (79-97) H 07/21/18 05:13 MCH 34 pg (28-32) H 07/21/18 05:13 MCHC 34 % (30-34) 07/21/18 05:13 RDW 14.7 % (13.2-15.2) 07/21/18 05:13 Plt Count 269 K/mm3 (140-440) 07/21/18 05:13 Lymph % (Auto) 25.0 % (13.4-35.0) 07/21/18 05:13 [place] % (Auto) 6.8 % (0.0-7.3) 07/21/18 05:13 Eos % (Auto) 1.3 % (0.0-4.3) 07/21/18 05:13 Baso % (Auto) 0.6 % (0.0-1.8) 07/21/18 05:13 Lymph # 2.8 K/mm3 (1.2-5.4) 07/21/18 05:13 [place] # 0.8 K/mm3 (0.0-0.8) 07/21/18 05:13 Eos # 0.1 K/mm3 (0.0-0.4) 07/21/18 05:13 Baso # 0.1 K/mm3 (0.0-0.1) 07/21/18 05:13 Seg Neutrophils % 66.3 % (40.0-70.0) 07/21/18 05:13 Seg Neutrophils # 7.4 K/mm3 (1.8-7.7) 07/21/18 05:13 Sodium 139 mmol/L (137-145) 07/21/18 05:13 Potassium 4.3 mmol/L (3.6-5.0) D 07/21/18 05:13 Chloride 100.8 mmol/L (98-107) 07/21/18 05:13 Carbon Dioxide 21 mmol/L (22-30) L 07/21/18 05:13 Anion Gap 22 mmol/L 07/21/18 05:13 BUN 13 mg/dL (7-17) 07/21/18 05:13 Creatinine 0.5 mg/dL (0.7-1.2) L 07/21/18 05:13 Estimated GFR > 60 ml/min 07/21/18 05:13 BUN/Creatinine Ratio 26 % 07/21/18 05:13 Glucose 100 mg/dL (65-100) 07/21/18 05:13 Calcium 9.4 mg/dL (8.4-10.2) 07/21/18 05:13 Phosphorus 3.10 mg/dL (2.5-4.5) 07/20/18 22:48 Magnesium 2.40 mg/dL (1.7-2.3) H 07/20/18 22:48 Total Bilirubin 0.30 mg/dL (0.1-1.2) 07/21/18 05:13 AST 16 units/L (5-40) 07/21/18 05:13 ALT 16 units/L (7-56) 07/21/18 05:13 Alkaline Phosphatase 85 units/L (35-129) 07/21/18 05:13 Ammonia < 10.0 umol/L (25-60) L 07/20/18 22:48 C-Reactive Protein 0.20 mg/dL (0.00-1.30) 07/17/18 04:27 Total Protein 6.5 g/dL (6.3-8.2) 07/21/18 05:13 Albumin 4.1 g/dL (3.9-5) 07/21/18 05:13 Albumin/Globulin Ratio 1.7 % 07/21/18 05:13 Amylase 40 units/L (27-131) 07/20/18 22:48 TSH 0.718 mlU/mL (0.270-4.200) 07/13/18 16:42 Free T4 1.49 ng/dL (0.76-1.46) H 07/13/18 16:42 Urine Color Yellow (Yellow) 07/12/18 22:14 Urine Turbidity Cloudy (Clear) 07/12/18 22:14 Urine pH 6.0 (5.0-7.0) 07/12/18 22:14 Ur Specific [place] 1.014 (1.003-1.030) 07/12/18 22:14 Urine Protein 30 mg/dl mg/dL (Negative) 07/12/18 22:14 Urine Glucose (UA) Neg mg/dL (Negative) 07/12/18 22:14 Urine Ketones Tr mg/dL (Negative) 07/12/18 22:14 Urine Blood Sm (Negative) 07/12/18 22:14 Urine Nitrite Neg (Negative) 07/12/18 22:14 Urine Bilirubin Neg (Negative) 07/12/18 22:14 Urine Urobilinogen < 2.0 mg/dL (<2.0) 07/12/18 22:14 Ur Leukocyte Esterase Neg (Negative) 07/12/18 22:14 Urine WBC (Auto) 2.0 /HPF (0.0-6.0) 07/12/18 22:14 Urine RBC (Auto) 3.0 /HPF (0.0-6.0) 07/12/18 22:14 U Epithel Cells (Auto) 1.0 /HPF (0-13.0) 07/12/18 22:14 Urine Mucus Few /HPF 07/12/18 22:14 Urine Opiates Screen Presumptive negative 07/12/18 22:14 Urine Methadone Screen Presumptive negative 07/12/18 22:14 Ur Barbiturates Screen Presumptive negative 07/12/18 22:14 Phenytoin 7.7 ug/mL (10.0-20.0) L 07/21/18 05:13 Ur Phencyclidine Scrn Presumptive negative 07/12/18 22:14 Ur Amphetamines Screen Presumptive negative 07/12/18 22:14 U Benzodiazepines Scrn Presumptive negative 07/12/18 22:14 Urine Cocaine Screen Presumptive negative 07/12/18 22:14 U Marijuana (THC) Screen Presumptive negative 07/12/18 22:14 Drugs of Abuse Note Disclamer 07/12/18 22:14 Plasma/Serum Alcohol < 0.01 % (0-0.07) 07/12/18 20:59
--- NOTE | 2018-07-21 16:20 | Progress Note ---
Subjective - Reason for Consult Consult date: 07/21/18 Reason for consult: Psychiatric Follow-up Evaluation - Chief Complaint Chief complaint: "I'm good" Patient is a 48 y.o. white female who presents to the ER for seizures. This patient was transferred from [place] on a invalid 1013. Today the patient is calm during the assessment. Patient seen sitting up in the chair. She still has delayed responses to questions asked of her. Patient is alert and oriented to person. She states, " I feel really good. I just want to go home and get some rest." Per RN patient is responding to internal stimuli and having auditory hallucinations. Per RN, patient believes that her is talking to her outside of her hospital room, although her is not present. She denies SI /HI's, A/VH's, and delusions. Mental Status Exam - Vital signs Last Vital Signs Temp 98.3 F 07/21/18 13:00 Pulse 113 H 07/21/18 13:00 Resp 96 H 07/21/18 13:00 BP 117/66 07/21/18 13:00 Pulse Ox 99 07/21/18 09:00 - Exam Narrative exam: Mental Status Exam General Appearance: Causally Dressed-hospital gown Eye Contact: Intermittent Orientation: Alert and oriented x 1 (person) Attitude/Behavior: Evasive, guarded Sensorium: Distracted Psychomotor & Musculoskeletal Activity: Sitting up in the chair Mood: " Really good" Affect: Incongruent Speech/Language: Delayed Thought Processes: Disorganized, circumstantial Thought Content: Impoverished Perception: + AH "my is talking to me outside" Concentration/Attention: Impaired Suicidal Ideations/Plan: Patient denies. Homicidal Ideations/Plan: Patient denies. Judgment: Limited Insight: Fair to Poor Assessment and Plan Impression: Delirium. Today the patient is calm during the assessment. Patient response to questions are delayed and inappropriate. Patient denies SI/HI, A/VH , and delusions. Per RN patient continues to have auditory hallucinations, although she denies. Medical: Status Epilepticus, Acute Encephalopathy, and Arachnoid cyst on MRI Recommendation/Plan: Continue to gather collateral information to help determine proper treatment and dispo. Use Ativan IV only for seizure activity. Neuro is following patient. Recommend Delirium precautions below: 1. Frequently reorient patient and involve him/her in their care (simple explanations of procedures, tests, medications). 2. Lights on and shades open during daytime hours. 3. Write date and goals of care in a visible place. 4. Try to avoid unnecessary interruptions to sleep during nighttime hours. 5. Obtain glasses, hearing aids from home if patient uses these at baseline. 6. Avoid medications that may exacerbate delirium (especially narcotics, benzodiazepines, barbiturates, ambien, lunesta, and medications with excessive anticholinergic properties).
[2018-07-22] MEDS ORDERED: KEPPRA 1,000 MG in NACL 0.9% 100 ML IV ONE (03:22)
[2018-07-22] MEDS ORDERED: KEPPRA 1,000 MG/NS 0.75% 100ML 1,000 MG/100 ML BAG IV ONE (04:00)
[2018-07-22] MEDS ORDERED: HALDOL IM ONE (06:42)
--- NOTE | 2018-07-22 10:08 | Progress Note ---
Assessment and Plan Assessment and plan: -Status Epilepticus: treat with iv keppra, dilantin, EEG ,---EEG at present with multiple diffuse sharp waves, generalized, slow background. Neurology is following, use IV ativan for breakthrough seizures -SIRS non infectious---resolved -Acute Encephalopathy related to the above, still present, will consult PT/OT -Arachnoid cyst on MRI: incidental -Hypokalemia: replaced -Suspected MDD: consulted psych -ETOH Withdrawal per Alexey's record: treat with IV ativan prn -Severe Debility---Needs PT/OT Discharge planning issues--patient ready for discharge. Family doesn't want to take her home b/c of her inability to walk. Patient needs ongoing Psych care and possibly inpatient due to persistent hallucination and refusal of medication. Will discuss with Psych Will discharge if patient able to walk.Or SNF--but patient has payor source problems. Pending placement D/w case management and Family at bedside. History Interval history: Patient seen and examined, still very drowsy this morning, moans, still with hallucination, patient on steady on her feet. Removed the role belt restraints last night and her cloths attempting to come out of the room naked early this am per nursing staff Hospitalist Physical - Physical exam Narrative exam: General appearance: Present: no acute distress, well-nourished - EENT Eyes: PERRL, EOM intact ENT: hearing intact, clear oral mucosa Ears: bilateral: normal - Neck Neck: supple, normal ROM - Respiratory Respiratory effort: normal Respiratory: bilateral: CTA - Breasts Breasts: normal - Cardiovascular Rhythm: regular Heart Sounds: Present: S1 & S2. Absent: gallop, rub Extremities: pulses intact, No edema, normal color, Full ROM - Gastrointestinal General gastrointestinal: Present: soft, non-tender, non-distended, normal bowel sounds Rectal Exam: deferred - Genitourinary Female genitourinary: normal - Integumentary Integumentary: clear, warm, dry - Musculoskeletal Musculoskeletal: strength equal bilaterally, generalized weakness - Neurologic Neurologic: CNII-XII intact, moves all extremities, other (Not able to walk) - Psychiatric Psychiatric: memory intact, appropriate mood/affect, intact judgment & insight - Constitutional Vitals: Temp Pulse Resp BP Pulse Ox 98.8 F 100 H 20 140/86 99 07/22/18 08:00 07/22/18 04:00 07/22/18 04:00 07/22/18 04:00 07/22/18 04:00 General appearance: Present: no acute distress, well-nourished Results - Labs CBC & Chem 7: 07/21/18 05:13 07/21/18 05:13 Labs: Laboratory Last Values WBC 11.1 K/mm3 (4.5-11.0) H 07/21/18 05:13 RBC 4.43 M/mm3 (3.65-5.03) 07/21/18 05:13 Hgb 15.3 gm/dl (10.1-14.3) H 07/21/18 05:13 Hct 45.3 % (30.3-42.9) H 07/21/18 05:13 MCV 102 fl (79-97) H 07/21/18 05:13 MCH 34 pg (28-32) H 07/21/18 05:13 MCHC 34 % (30-34) 07/21/18 05:13 RDW 14.7 % (13.2-15.2) 07/21/18 05:13 Plt Count 269 K/mm3 (140-440) 07/21/18 05:13 Lymph % (Auto) 25.0 % (13.4-35.0) 07/21/18 05:13 [place] % (Auto) 6.8 % (0.0-7.3) 07/21/18 05:13 Eos % (Auto) 1.3 % (0.0-4.3) 07/21/18 05:13 Baso % (Auto) 0.6 % (0.0-1.8) 07/21/18 05:13 Lymph # 2.8 K/mm3 (1.2-5.4) 07/21/18 05:13 [place] # 0.8 K/mm3 (0.0-0.8) 07/21/18 05:13 Eos # 0.1 K/mm3 (0.0-0.4) 07/21/18 05:13 Baso # 0.1 K/mm3 (0.0-0.1) 07/21/18 05:13 Seg Neutrophils % 66.3 % (40.0-70.0) 07/21/18 05:13 Seg Neutrophils # 7.4 K/mm3 (1.8-7.7) 07/21/18 05:13 Sodium 139 mmol/L (137-145) 07/21/18 05:13 Potassium 4.3 mmol/L (3.6-5.0) D 07/21/18 05:13 Chloride 100.8 mmol/L (98-107) 07/21/18 05:13 Carbon Dioxide 21 mmol/L (22-30) L 07/21/18 05:13 Anion Gap 22 mmol/L 07/21/18 05:13 BUN 13 mg/dL (7-17) 07/21/18 05:13 Creatinine 0.5 mg/dL (0.7-1.2) L 07/21/18 05:13 Estimated GFR > 60 ml/min 07/21/18 05:13 BUN/Creatinine Ratio 26 % 07/21/18 05:13 Glucose 100 mg/dL (65-100) 07/21/18 05:13 Calcium 9.4 mg/dL (8.4-10.2) 07/21/18 05:13 Phosphorus 3.10 mg/dL (2.5-4.5) 07/20/18 22:48 Magnesium 2.40 mg/dL (1.7-2.3) H 07/20/18 22:48 Total Bilirubin 0.30 mg/dL (0.1-1.2) 07/21/18 05:13 AST 16 units/L (5-40) 07/21/18 05:13 ALT 16 units/L (7-56) 07/21/18 05:13 Alkaline Phosphatase 85 units/L (35-129) 07/21/18 05:13 Ammonia < 10.0 umol/L (25-60) L 07/20/18 22:48 C-Reactive Protein 0.20 mg/dL (0.00-1.30) 07/17/18 04:27 Total Protein 6.5 g/dL (6.3-8.2) 07/21/18 05:13 Albumin 4.1 g/dL (3.9-5) 07/21/18 05:13 Albumin/Globulin Ratio 1.7 % 07/21/18 05:13 Amylase 40 units/L (27-131) 07/20/18 22:48 TSH 0.718 mlU/mL (0.270-4.200) 07/13/18 16:42 Free T4 1.49 ng/dL (0.76-1.46) H 07/13/18 16:42 Urine Color Yellow (Yellow) 07/12/18 22:14 Urine Turbidity Cloudy (Clear) 07/12/18 22:14 Urine pH 6.0 (5.0-7.0) 07/12/18 22:14 Ur Specific [place] 1.014 (1.003-1.030) 07/12/18 22:14 Urine Protein 30 mg/dl mg/dL (Negative) 07/12/18 22:14 Urine Glucose (UA) Neg mg/dL (Negative) 07/12/18 22:14 Urine Ketones Tr mg/dL (Negative) 07/12/18 22:14 Urine Blood Sm (Negative) 07/12/18 22:14 Urine Nitrite Neg (Negative) 07/12/18 22:14 Urine Bilirubin Neg (Negative) 07/12/18 22:14 Urine Urobilinogen < 2.0 mg/dL (<2.0) 07/12/18 22:14 Ur Leukocyte Esterase Neg (Negative) 07/12/18 22:14 Urine WBC (Auto) 2.0 /HPF (0.0-6.0) 07/12/18 22:14 Urine RBC (Auto) 3.0 /HPF (0.0-6.0) 07/12/18 22:14 U Epithel Cells (Auto) 1.0 /HPF (0-13.0) 07/12/18 22:14 Urine Mucus Few /HPF 07/12/18 22:14 Urine Opiates Screen Presumptive negative 07/12/18 22:14 Urine Methadone Screen Presumptive negative 07/12/18 22:14 Ur Barbiturates Screen Presumptive negative 07/12/18 22:14 Phenytoin 7.7 ug/mL (10.0-20.0) L 07/21/18 05:13 Ur Phencyclidine Scrn Presumptive negative 07/12/18 22:14 Ur Amphetamines Screen Presumptive negative 07/12/18 22:14 U Benzodiazepines Scrn Presumptive negative 07/12/18 22:14 Urine Cocaine Screen Presumptive negative 07/12/18 22:14 U Marijuana (THC) Screen Presumptive negative 07/12/18 22:14 Drugs of Abuse Note Disclamer 07/12/18 22:14 Plasma/Serum Alcohol < 0.01 % (0-0.07) 07/12/18 20:59
[2018-07-22] MEDS: KEPPRA PO SCH ×2 (17:13→23:15)
[2018-07-22] MEDS: FOLVITE PO SCH (17:13)
[2018-07-22] MEDS: DILANTIN PO SCH ×2 (17:13→23:15)
[2018-07-22] MEDS: VITAMIN B-1 PO SCH (17:14)
--- NOTE | 2018-07-22 18:09 | Progress Note ---
Subjective - Reason for Consult Consult date: 07/22/18 Reason for consult: follow up - Chief Complaint Chief complaint: "I have a problem taking pills." Patient is a 48 y.o. white female who presents to the ER for seizures. This patient was transferred from [place] on a invalid 1013. Today the patient is calm during the assessment. She still has delayed responses to questions asked of her. Patient is alert and oriented to person and place. She denies SI/HI or hallucinations. She mentioned doing what God wanted her to do. She denies feeling confused. She reports taking xanax and klonopin prior to her hospitalization but could not remember the dosages. She adamantly denies use of alcohol. [place] [employer] Aware database indicates Ms. Macias has been receiving xanax 1mg #90/mo, klonopin 1mg #30/mo, and suboxone 8mg #60 q 2 weeks for at least the last year. She last had those filled 06/07/2018. Mental Status Exam - Vital signs Last Vital Signs Temp 97.5 F L 07/22/18 13:39 Pulse 118 H 07/22/18 13:39 Resp 18 07/22/18 13:39 BP 143/86 07/22/18 13:39 Pulse Ox 99 07/22/18 13:39 - Exam Orientation: place, person Affect: flat Mood: calm Thought content: other (no SI/HI. unable to elicit delusional content) Thought Process: Intact (limited in scope) Perceptions: none Speech: paucity Concentration: focused Motor activity: normal Level of consciousness: alert Memory: Intact Appetite: decreased Interaction: cooperative Assessment and Plan Impression: Delirium. Today the patient is calm during the assessment. Patient response to questions are delayed and superficial. Patient denies SI/HI, AVH. Unable to elicit delusional thought content. She reports taking xanax and klonopin prior to her hospitalization but could not remember the dosages. [place] [employer] Aware database indicates Ms. Macias has been receiving xanax 1mg #90/mo, klonopin 1mg #30/mo, and suboxone 8mg #60 q 2 weeks for at least the last year. She last had those filled 06/07/2018. Medical: Status Epilepticus, Acute Encephalopathy, and Arachnoid cyst on MRI Recommendation/Plan: Continue to gather collateral information to help determine proper treatment and dispo. Use Ativan IV only for seizure activity. Neuro is following patient. If she was taking klonopin and xanax at the above dosages, benzo withdrawal would have been likely during her [place] stay days ago, not currently. Recommend Delirium precautions below: 1. Frequently reorient patient and involve him/her in their care (simple explanations of procedures, tests, medications). 2. Lights on and shades open during daytime hours. 3. Write date and goals of care in a visible place. 4. Try to avoid unnecessary interruptions to sleep during nighttime hours. 5. Obtain glasses, hearing aids from home if patient uses these at baseline. 6. Avoid medications that may exacerbate delirium (especially narcotics, benzodiazepines, barbiturates, ambien, lunesta, and medications with excessive anticholinergic properties).
[2018-07-22] MEDS: ATIVAN IV PRN (23:16)
[2018-07-23] MEDS: ATIVAN IV PRN (04:59)
[2018-07-23 07:16] VITALS: BP 133/88
[2018-07-23] MEDS: DILANTIN PO SCH (10:00)
[2018-07-23] MEDS: VITAMIN B-1 PO SCH (10:00)
[2018-07-23] MEDS: KEPPRA PO SCH (10:00)
[2018-07-23] MEDS: FOLVITE PO SCH (10:00)
--- NOTE | 2018-07-23 10:22 | Progress Note ---
Assessment and Plan Assessment and plan: -Status Epilepticus: treat with iv keppra, dilantin, EEG ,---EEG at present with multiple diffuse sharp waves, generalized, slow background. Neurology is following, use IV ativan for breakthrough seizures -SIRS non infectious---resolved -Acute Encephalopathy related to the above, still present, will consult PT/OT -Arachnoid cyst on MRI: incidental -Hypokalemia: replaced -Suspected MDD: consulted psych -ETOH Withdrawal per Alexey's record: treat with IV ativan prn -Severe Debility---Needs PT/OT Discharge planning issues--patient ready for discharge. Family doesn't want to take her home b/c of her inability to walk. Patient needs ongoing Psych care and possibly inpatient due to persistent hallucination and refusal of medication. Will discuss with Psych Will discharge if patient able to walk.Or SNF--but patient has payor source problems. Pending placement D/w case management and Family at bedside. D Hospitalist Physical - Constitutional Vitals: Temp Pulse Resp BP Pulse Ox 98.1 F 102 H 20 133/88 97 07/23/18 06:21 07/23/18 06:21 07/23/18 06:21 07/23/18 06:21 07/23/18 06:21 General appearance: Present: no acute distress, well-nourished Results - Labs CBC & Chem 7: 07/21/18 05:13 07/21/18 05:13 Labs: Laboratory Last Values WBC 11.1 K/mm3 (4.5-11.0) H 07/21/18 05:13 RBC 4.43 M/mm3 (3.65-5.03) 07/21/18 05:13 Hgb 15.3 gm/dl (10.1-14.3) H 07/21/18 05:13 Hct 45.3 % (30.3-42.9) H 07/21/18 05:13 MCV 102 fl (79-97) H 07/21/18 05:13 MCH 34 pg (28-32) H 07/21/18 05:13 MCHC 34 % (30-34) 07/21/18 05:13 RDW 14.7 % (13.2-15.2) 07/21/18 05:13 Plt Count 269 K/mm3 (140-440) 07/21/18 05:13 Lymph % (Auto) 25.0 % (13.4-35.0) 07/21/18 05:13 [place] % (Auto) 6.8 % (0.0-7.3) 07/21/18 05:13 Eos % (Auto) 1.3 % (0.0-4.3) 07/21/18 05:13 Baso % (Auto) 0.6 % (0.0-1.8) 07/21/18 05:13 Lymph # 2.8 K/mm3 (1.2-5.4) 07/21/18 05:13 [place] # 0.8 K/mm3 (0.0-0.8) 07/21/18 05:13 Eos # 0.1 K/mm3 (0.0-0.4) 07/21/18 05:13 Baso # 0.1 K/mm3 (0.0-0.1) 07/21/18 05:13 Seg Neutrophils % 66.3 % (40.0-70.0) 07/21/18 05:13 Seg Neutrophils # 7.4 K/mm3 (1.8-7.7) 07/21/18 05:13 Sodium 139 mmol/L (137-145) 07/21/18 05:13 Potassium 4.3 mmol/L (3.6-5.0) D 07/21/18 05:13 Chloride 100.8 mmol/L (98-107) 07/21/18 05:13 Carbon Dioxide 21 mmol/L (22-30) L 07/21/18 05:13 Anion Gap 22 mmol/L 07/21/18 05:13 BUN 13 mg/dL (7-17) 07/21/18 05:13 Creatinine 0.5 mg/dL (0.7-1.2) L 07/21/18 05:13 Estimated GFR > 60 ml/min 07/21/18 05:13 BUN/Creatinine Ratio 26 % 07/21/18 05:13 Glucose 100 mg/dL (65-100) 07/21/18 05:13 Calcium 9.4 mg/dL (8.4-10.2) 07/21/18 05:13 Phosphorus 3.10 mg/dL (2.5-4.5) 07/20/18 22:48 Magnesium 2.40 mg/dL (1.7-2.3) H 07/20/18 22:48 Total Bilirubin 0.30 mg/dL (0.1-1.2) 07/21/18 05:13 AST 16 units/L (5-40) 07/21/18 05:13 ALT 16 units/L (7-56) 07/21/18 05:13 Alkaline Phosphatase 85 units/L (35-129) 07/21/18 05:13 Ammonia < 10.0 umol/L (25-60) L 07/20/18 22:48 C-Reactive Protein 0.20 mg/dL (0.00-1.30) 07/17/18 04:27 Total Protein 6.5 g/dL (6.3-8.2) 07/21/18 05:13 Albumin 4.1 g/dL (3.9-5) 07/21/18 05:13 Albumin/Globulin Ratio 1.7 % 07/21/18 05:13 Amylase 40 units/L (27-131) 07/20/18 22:48 TSH 0.718 mlU/mL (0.270-4.200) 07/13/18 16:42 Free T4 1.49 ng/dL (0.76-1.46) H 07/13/18 16:42 Urine Color Yellow (Yellow) 07/12/18 22:14 Urine Turbidity Cloudy (Clear) 07/12/18 22:14 Urine pH 6.0 (5.0-7.0) 07/12/18 22:14 Ur Specific [place] 1.014 (1.003-1.030) 07/12/18 22:14 Urine Protein 30 mg/dl mg/dL (Negative) 07/12/18 22:14 Urine Glucose (UA) Neg mg/dL (Negative) 07/12/18 22:14 Urine Ketones Tr mg/dL (Negative) 07/12/18 22:14 Urine Blood Sm (Negative) 07/12/18 22:14 Urine Nitrite Neg (Negative) 07/12/18 22:14 Urine Bilirubin Neg (Negative) 07/12/18 22:14 Urine Urobilinogen < 2.0 mg/dL (<2.0) 07/12/18 22:14 Ur Leukocyte Esterase Neg (Negative) 07/12/18 22:14 Urine WBC (Auto) 2.0 /HPF (0.0-6.0) 07/12/18 22:14 Urine RBC (Auto) 3.0 /HPF (0.0-6.0) 07/12/18 22:14 U Epithel Cells (Auto) 1.0 /HPF (0-13.0) 07/12/18 22:14 Urine Mucus Few /HPF 07/12/18 22:14 Urine Opiates Screen Presumptive negative 07/12/18 22:14 Urine Methadone Screen Presumptive negative 07/12/18 22:14 Ur Barbiturates Screen Presumptive negative 07/12/18 22:14 Phenytoin 7.7 ug/mL (10.0-20.0) L 07/21/18 05:13 Ur Phencyclidine Scrn Presumptive negative 07/12/18 22:14 Ur Amphetamines Screen Presumptive negative 07/12/18 22:14 U Benzodiazepines Scrn Presumptive negative 07/12/18 22:14 Urine Cocaine Screen Presumptive negative 07/12/18 22:14 U Marijuana (THC) Screen Presumptive negative 07/12/18 22:14 Drugs of Abuse Note Disclamer 07/12/18 22:14 Plasma/Serum Alcohol < 0.01 % (0-0.07) 07/12/18 20:59
--- NOTE | 2018-07-23 10:23 | Discharge Summary ---
Providers - Providers Date of Admission: 07/13/18 05:12 Attending physician: RADHA MORROW MD 07/13/18 06:00 Consult to Physician [CONS] Routine Comment: Consulting Provider: NIYAH ADAMS Physician Instructions: Reason For Exam: SEIZURE 07/13/18 08:56 Consult to Mental Health [CONS] Urgent Reason For Exam: psych Place consult to:: cork tipper senior controller Notified:: awaiting call back Comment:: fax to [phone] 07/16/18 07:37 Consult to Physician [CONS] Routine Comment: Consulting Provider: VARINDER EASON Physician Instructions: Reason For Exam: Re-evaluate for Seizures 07/16/18 10:39 Consult to Physician [CONS] Routine Comment: Consulting Provider: RENA SINCLAIR Physician Instructions: i notified, please add to her list Reason For Exam: low grade fever, AMS with seizures, ?LP 07/18/18 10:32 Occupational Therapy Evaluate and Treat [CONS] Routine Comment: Reason For Exam: ADLs evaluation Physical Therapy Evaluation and Treat [CONS] Routine Comment: Reason For Exam: gait evaluation/ambulatory dysfunction 07/20/18 14:07 Physical Therapy Evaluation and Treat [CONS] Urgent Comment: If she walks a few steps I will discharge her Reason For Exam: Debility Primary care physician: WASH HELPER Hospitalization Reason for admission: aMS Condition: Stable Hospital course: PT is currently at [facility] for psychosis on a voluntary basis. Today she had two generalized seizures. Never has had a seizure before. Patient did not return to baseline between the 2 seizures. She was postictal afterwards. When EMS arrived, her seizures have stopped. They gave her 2 mg IV Ativan and brought her to the ER for evaluation. After admission the patient had several more seizures, not waking up inbetween. She has been loaded with Keppra and given multiple doses of Ativan Currently she is postictal, awake but not verbal. MRI scan reveals an odd cystic lesion at the quadrennial plate, near the 3rd ventricle. The patients delirium was noted and psych recommended outpatient evaluation. A review of [facility] Aware database indicates Ms. Macias has been receiving xanax 1mg #90/mo, klonopin 1mg # 30/mo, and suboxone 8mg #60 q 2 weeks for at least the last year. She last had those filled 06/07/2018. Patient improved with ambulating and mental status also improved. she has good family support and case management worked on discharge plan. -Status Epilepticus: -SIRS non infectious---resolved -Acute Encephalopathy -Arachnoid cyst on MRI: -Hypokalemia: -Suspected MDD: -ETOH Withdrawal per Alexey's record: Disposition: DC/TX-65 PSY HOSP/PSY UNIT Time spent for discharge: 35 MINS Core Measure Documentation - Palliative Care Palliative Care/ Comfort Measures: Not Applicable - Core Measures Any of the following diagnoses?: none - VTE Discharge Requirements Deep Vein Thrombosis/Pulmonary Embolism Present on Admission: No Exam - Physical Exam Narrative exam: General appearance: Present: no acute distress, well-nourished - EENT Eyes: PERRL, EOM intact ENT: hearing intact, clear oral mucosa Ears: bilateral: normal - Neck Neck: supple, normal ROM - Respiratory Respiratory effort: normal Respiratory: bilateral: CTA - Breasts Breasts: normal - Cardiovascular Rhythm: regular Heart Sounds: Present: S1 & S2. Absent: gallop, rub Extremities: pulses intact, No edema, normal color, Full ROM - Gastrointestinal General gastrointestinal: Present: soft, non-tender, non-distended, normal bowel sounds Rectal Exam: deferred - Genitourinary Female genitourinary: normal - Integumentary Integumentary: clear, warm, dry - Musculoskeletal Musculoskeletal: strength equal bilaterally, generalized weakness - Neurologic Neurologic: CNII-XII intact, moves all extremities, other (Not able to walk) - Psychiatric Psychiatric: memory intact, appropriate mood/affect, intact judgment & insight - Constitutional Vitals: Temp Pulse Resp BP Pulse Ox 98.1 F 102 H 20 133/88 97 07/23/18 06:21 07/23/18 06:21 07/23/18 06:21 07/23/18 06:21 07/23/18 06:21 Plan Activity: advance as tolerated, fall precautions Diet: low fat Special Instructions: record daily BP diary, smoking cessation Follow up with: PRIMARY CARE, [Primary Care Provider] - 3-5 Days Prescriptions: Folic Acid [Folvite] 1 mg PO QDAY #30 tablet levETIRAcetam [Keppra TAB] 1,500 mg PO BID #60 tablet Phenytoin [Dilantin] 200 mg PO BID #60 capsule.er Thiamine [Vitamin B-1] 100 mg PO QDAY #30 tablet
--- NOTE | 2018-07-23 11:47 | Progress Note ---
Subjective - Reason for Consult Consult date: 07/23/18 Reason for consult: Psychiatry Follow-up - Chief Complaint Chief complaint: "How are you" Patient is a 48 y.o. white female who presents to the ER for seizures. This patient was transferred from [place] on a invalid 1013. Today the patient is calm and cooperative during the assessment. She has intermittent delayed responses to questions asked of her. She was able to state her , her location and recall 2/3 numbers within 5 mins. She denies being depressed, SI/HI 's, and AVH's. She stated that she would like information for her local area for rehab services. She reports taking Xanax and Klonopin prior to her hospitalization. She continue to deny the use of alcohol. I spoke with the patient's sister, Lima Gillis at . She stated that the patient has a hx of taking pills (narcotics). She denies any previous suicide attempts by the patient. She stated that the patient's boyfriend Nuno and herself will be the support system for the patient. She is aware of the location of [facility] for outpatient rehab services for the patient. [facility] Aware database indicates Ms. Macias has been receiving xanax 1mg #90/mo, klonopin 1mg #30/mo, and suboxone 8mg #60 q 2 weeks for at least the last year. She last had those filled 06/07/2018. Mental Status Exam - Vital signs Last Vital Signs Temp 98.1 F 07/23/18 06:21 Pulse 102 H 07/23/18 06:21 Resp 20 07/23/18 06:21 BP 133/88 07/23/18 06:21 Pulse Ox 97 07/23/18 06:21 - Exam Narrative exam: MSE: Appearance: calm, cooperative Behavior: regular eye contact Speech: regular rate and low tone Mood: "okay" Affect: congruent to mood Thought Process: circumstantial Thought Content: denies SI/HI's and AVH's Motor Activity: lying in bed Cognition: A/O x 3 Insight: fair Judgment: fair Assessment and Plan Impression: Hx of Opioid Use DO. Today the patient is calm and cooperative during the assessment. The patient's delirium has resolved and her mental status has improved. No withdrawals noted (opioid/benzos). Medical: Status Epilepticus, Acute Encephalopathy, and Arachnoid cyst on MRI Recommendation/Plan: The patient can follow up for outpatient rehab services at [facility] in [place], [place]. Discussed the importance to abstain from opioid use.
== END 2018-07-23 14:37 | disposition home or self-care (01) | DRG 100 ==
LOC: ED 19:26 → 4A 07-13 05:12 → CC1 07-13 12:01 → 3A 07-14 13:14 → IMCU 07-15 15:52 → 3A 07-22 12:30
PROVIDERS: ADMIT Internal Medicine; ATTEND Internal Medicine
DX: G40.901 Epilepsy, unspecified, not intractable, with status epilepticus (principal); G93.40 Encephalopathy, unspecified; R65.10 Systemic inflammatory response syndrome (SIRS) of non-infectious origin without acute organ dysfunction; F10.239 Alcohol dependence with withdrawal, unspecified; G93.0 Cerebral cysts; F17.200 Nicotine dependence, unspecified, uncomplicated; I11.0 Hypertensive heart disease with heart failure; I50.9 Heart failure, unspecified; E87.6 Hypokalemia; R41.0 Disorientation, unspecified; Y90.9 Presence of alcohol in blood, level not specified
CPT/HCPCS: 36415; 70450; 70553; 71046; 80048; 80053; 80185; 80307; 80320; 81001; 82140; 82150; 83735; 84100; 84439; 84443; 85025; 85027; 86140; 87040; 93005; 93010; 95819; 96374; 96375; A9577; G0480; J1630; J1644; J1885; J1953; J2060; J3480; J7030